=== PATIENT | female | born 1955 | race Caucasian/White ===

== ENCOUNTER 2019-06-09 13:38 | Inpatient (IN) | payer MEDICARE ==
--- OUTSIDE RECORDS SUMMARY | 2019-06-09 14:00 | XMS REPORT | Summary of Care ---
:1955 Author Organization [facility] Address [address] [place] [address] Care Team Providers Name Role Phone Crystal Montalvo Primary Care Provider Reason for Referral Diagnostic Testing (Routine) Status Reason Specialty Diagnoses / Referred By Referred To Procedures Contact Contact Pending Review Diagnoses Pedal edema Crystal Montalvo MD Procedures ECHOCARDIOGRAM TTE [address] [place] [address] Refer to Department Only (Routine) Status Reason Specialty Diagnoses / Referred By Referred To Procedures Contact Contact Pending Review NEUROLOGY Diagnoses Confusion Crystal Montalvo MD [address] [place] [address] Refer to Department Only (Routine) Status Reason Specialty Diagnoses / Referred By Referred To Procedures Contact Contact Pending Review PULMONARY Diagnoses YEHUDA (obstructive sleep apnea) Crystal Montalvo MD [address] [place] [address] Reason for Visit Reason Comments Fatigue falling asleep throughout the day while doing things (watching TV, texting, driving) Memory Loss MMSE score 29 today Angioedema b/l ankles Breathing Problem Burning Eyes Encounter Details Date Type Department Care Team Description 06/05/2019 Office Visit Crystal Dawkins MD Hypothyroidism, unspecified type (Primary Dx); Medicine [address] Lipid disorder; [address] [place] [address] YEHUDA (obstructive sleep apnea); [place] [address] Confusion; [phone] Pedal edema Allergies Active Allergy Reactions Severity Noted Date Comments Aspirin 2007 documented as of this encounter (statuses as of 06/05/2019) Medications Medication Sig Dispensed Refills Start End Date Status Date aspirin (ECOTRIN) 81 MG Take 81 mg 0 Active Oral Tab EC by mouth DAILY. levothyroxine Take 1 Tab 90 Tab 1 Active (SYNTHROID) 50 MCG Oral by mouth 9 Tab BEFORE BREAKFAST. alpha-tocopherol Take 400 0 Active (VITAMIN E) 400 UNIT Units by Oral Cap mouth DAILY. Cholecalciferol (VITAMIN Take 2,000 0 Active D3) 50 MCG (2000 UT) Units by Oral Tab mouth DAILY AT 1400. hydrochlorothiazide Take 1 Cap 90 Cap 3 Active (HCTZ, ORETIC) 12.5 MG by mouth 0 Oral CapIndications: DAILY. Pedal edema MAGNESIUM PO Take by 0 06/05/19 Discontinued mouth. 20 (Patient stopped the medication) documented as of this encounter (statuses as of 06/05/2019) Active Problems Problem Noted Date YEHUDA (obstructive sleep apnea) 11/29/2018 Overview: Refer to [facility] - 11/29/18 - Sleep study shows severe obsructive sleep apnea Lipid disorder 12/03/2015 Overview: High HDL; High LDL - framingham risk 2% ( 11/15) 02/01/16 - 6.2 % Gastroesophageal reflux disease 03/03/2015 Osteoporosis 02/18/2014 Overview: Last dxa 2010 - Has been on actonel - since ~2005 - Frax data: 10 yr risk for major osteoporotic fracture - 12 %; hip fracture 3-% Adult BMI 19-24 kg/sq m 07/10/2011 Mammographic microcalcification 10/31/2007 Unspecified vitamin D deficiency 2007 Unspecified hypothyroidism 2007 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 Disorder of bone and cartilage, unspecified 2007 Other and unspecified hyperlipidemia 2007 Personal history of colonic polyps 2007 documented as of this encounter (statuses as of 06/05/2019) Immunizations Name Administration Dates Next Due Influenza (IM) Preservative Free 01/04/2018, 01/31/2016, 01/08/2015, 01/22/2014, 03/05/2013, 03/16/2012, 03/02/2011 PNEUMOCOCCAL POLYSACCHARIDE VACCINE 03/20/2011 Pneumococcal Conjugate(13 Valent) 12/02/2015 TDAP Vaccine 04/04/2019, 11/18/2007 documented as of this encounter Social History Tobacco Use Types Packs/Day Years Used Date Former Smoker Quit: 04/02/1999 Smokeless Tobacco: Never Used Alcohol Use Drinks/Week oz/Week Comments No Social Isolation Answer Date Recorded In a typical week, how many times do you More than three times a week 2018 talk on the phone with family, friends, or neighbors? How often do you get together with friends More than three times a week 10/23 or relatives? How often do you attend quaker or Not asked taoism services? Do you belong to any clubs or Not asked organizations such as quaker groups, unions, [employer] or athletic groups, or school groups? How often do you attend meetings of the Not asked clubs or organizations you belong to? Are you now , , , Never 10/23/2018 , never or living with a partner? Physical Activity Answer Date Recorded On average, how many days per week do you engage in moderate to 3 days 2018 strenuous exercise (like walking fast, running, jogging, dancing, swimming, biking, or other activities that cause a light or heavy sweat)? On average, how many minutes do you engage in exercise at this 30 min 2018 level? Stress Answer Date Recorded Do you feel stress - tense, restless, nervous, or anxious, Not at all 2018 or unable to sleep at night because your mind is troubled all the time - these days? Financial Resource Strain Answer Date Recorded How hard is it for you to pay for the very basics like Not hard at all 2018 food, housing, medical care, and heating? Intimate Partner Violence Answer Date Recorded Within the last year, have you been afraid of your partner or No 10/23/2018 ex-partner? Within the last year, have you been humiliated or emotionally No 10/23/2018 abused in other ways by your partner or ex-partner? Within the last year, have you been kicked, hit, slapped, or No 10/23/2018 otherwise physically hurt by your partner or ex-partner? Within the last year, have you been raped or forced to have any No 10/23/2018 kind of sexual activity by your partner or ex-partner? Food Insecurity Answer Date Recorded Within the past 12 months, you worried that your food would Never true 2018 run out before you got money to buy more. Within the past 12 months, the food you bought just didn't Never true 2018 last and you didn't have money to get more. Transportation Needs Answer Date Recorded In the past 12 months, has lack of transportation kept you from No 10/23/2018 medical appointments or from getting medications? In the past 12 months, has lack of transportation kept you from No 10/23/2018 meetings, work, or getting things needed for daily living? Sex Assigned at Date Recorded Not on file documented as of this encounter Last Filed Vital Signs Vital Sign Reading Time Taken Comments Blood Pressure 128/84 06/05/2019 1:27 PM EST Pulse 56 06/05/2019 1:27 PM EST Temperature 35.9 06/05/2019 1:27 PM EST C (96.7 F) Respiratory Rate - - Oxygen Saturation 97% 06/05/2019 1:27 PM EST Inhaled Oxygen Concentration - - Weight - - Height 167.6 cm (5' 6") 06/05/2019 1:27 PM EST Body Mass Index - - documented in this encounter Patient Instructions Patient InstructionsCrystal Montalvo MD - 06/05/2019 1:20 PM ESTPlan Referral to pulmonary to assess for obsructive sleep apnea Referral neurology for narcoleptic episodes / confusion Progression of Myotonic Distrophy Referral back to monomer recovery operator - Blurry vision documented in this encounter Progress Notes Crystal Montalvo MD - 06/05/2019 1:20 PM EST NAME:Damaris Sierra 1955: 1955 ENC Date: 06/05/2019 CC: Chief Complaint Patient presents with ? Fatigue falling asleep throughout the day while doing things (watching TV, texting, driving) ? Memory Loss MMSE score 29 today ? Angioedema b/l ankles ? Breathing Problem ? Burning Eyes Damaris Sierra is a 64-y.o. female 1. Hypothyroid - Lab Results Component Value Date TSH 3.82 05/01/2019 2 cpap - Was fitted with wrong machine - Still without mask - has gotten weaker - sleeping in a recliner becuase cannot get out of bed 4. Vision - new glasses - then blurry again - 5. Falling asleep frequently - midsentence 6. Pedal edema Current Outpatient Medications Medication Sig ? alpha-tocopherol (VITAMIN E) 400 UNIT Oral Cap Take 400 Units by mouth DAILY. ? aspirin (ECOTRIN) 81 MG Oral Tab EC Take 81 mg by mouth DAILY. ? Cholecalciferol (VITAMIN D3) 50 MCG (2000 UT) Oral Tab Take 2,000 Units by mouth DAILY AT 1400. ? hydrochlorothiazide (HCTZ, ORETIC) 12.5 MG Oral Cap Take 1 Cap by mouth DAILY. ? levothyroxine (SYNTHROID) 50 MCG Oral Tab Take 1 Tab by mouth BEFORE BREAKFAST. No current facility-administered medications for this visit. Patient Active Problem List Diagnosis Date Noted ? YEHUDA (obstructive sleep apnea) 11/29/2018 [place] [facility] [place] - Sleep study shows severe obsructive sleep apnea ? Lipid disorder 12/03/2015 High HDL; High LDL - framingham risk 2% ( 11/15) 02/01/16 - 6.2 % ? Gastroesophageal reflux disease 03/03/2015 ? Osteoporosis 02/18/2014 Last dxa 2010 - Has been on actonel - since ~2005 - Frax data: 10 yr risk for major osteoporotic fracture - 12 %; hip fracture 3-% ? Adult BMI 19-24 kg/sq m 07/10/2011 ? Mammographic microcalcification 10/31/2007 ? Unspecified vitamin D deficiency 2007 ? Unspecified hypothyroidism 2007 ? 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 Disorder of bone and cartilage, unspecified 2007 ? Other and unspecified hyperlipidemia 2007 ? Personal history of colonic polyps 2007 Family History Problem Relation Age of Onset ? Breast Cancer Maternal Aunt ? Seizures Father ? Stroke Father ? CHF Mother ? Heart Mother A fib ? Stroke Mother ? Macular Degeneration Mother ? No Known Problems Sister ? No Known Problems Sister ? Heart Sister Conduction issues No cardiopulmonary symptoms No upper or lower GI complaints No urinary tract symptoms. No bruising/ bleeding. No neurological complaints . No insomnia.+ . Social History Tobacco Use ? Smoking status: Former Smoker Last attempt to quit: 04/02/1999 Years since quittin.1 ? Smokeless tobacco: Never Used Substance Use Topics ? Alcohol use: No ? Drug use: No OBJECTIVE: observed episodes of "falling asleep" almost in midsentene BP 128/84 | Pulse 56 | Temp 96.7 F (35.9 C) | Ht 5' 6" (1.676 m) | SpO2 97% | BMI 24.21kg/m . Heent neg Lungs Clear CV rrr Abd soft, nontender, no organomegaly Ext 2-3 + edema; no lesions; pulses intact Neuro: intellect intact ; A/P ICD-9-CM ICD-10-CM 1. Hypothyroidism, unspecified type 244.9 E03.9 2. Lipid disorder 272.9 E78.9 3. YEHUDA (obstructive sleep apnea) 327.23 G47.33 REFER TO PULMONARY 4. Confusion 298.9 R41.0 REFER TO NEUROLOGY 5. Pedal edema 782.3 R60.0 ECHOCARDIOGRAM TTE hydrochlorothiazide (HCTZ, ORETIC) 12.5 MG Oral Cap Patient Instructions Plan Referral to pulmonary to assess for obsructive sleep apnea Referral neurology for narcoleptic episodes / confusion Progression of Myotonic Distrophy Referral back to monomer recovery operator - Blurry vision AUTHOR: Crystal Montalvo MD 14:30 06/05/2019 documented in this encounter Plan of Treatment Date Type Specialty Care Team Description 06/11/2019 Appointment Radiology Name Type Priority Associated Diagnoses Order Schedule ECHOCARDIOGRAM TTE CV Lab Routine Pedal edema Expected: 06/05/2019, Expires: 07/09/2020 Name Type Priority Associated Diagnoses Order Schedule REFER TO PULMONARY Referral Routine YEHUDA (obstructive sleep Expected: 2019, apnea) Expires: 06/04/2020 REFER TO NEUROLOGY Referral Routine Confusion Expected: 06/05/2019, Expires: 06/04/2020 Health Maintenance Due Date Last Done Comments MAMMOGRAM (SCREENING) 07/20/2018 07/20/2017, 06/28/2017, 12/02/2015, Additional history exists DEPRESSION SCREENING 10/24/2019 10/23/2018 MEDICARE ANNUAL WELLNESS 10/24/2019 10/23/2018, 10/18/2017, VISIT 12/02/2015, Additional history exists INFLUENZA VACCINE (#1) 2019 01/04/2018, 01/31/2016, Postponed from 01/08/2015, Additional 12/01/2018 (Other) history exists ZOSTER IMMUNIZATION SERIES 04/04/2020 Postponed from (1 of 2) 2005 (Patient refused) Colonoscopy 10/19/2020 10/20/2015 (Postponed), 11/21/2010, 11/21/2010 Cologuard Screening 10/07/2021 10/07/2018 LIPID DISORDER SCREENING 09/24/2023 09/23/2018, 12/03/2015, 02/24/2015, Additional history exists DTaP/Tdap/Td Vaccines (3 - 04/04/2029 04/04/2019, 11/18/2007 Tdap) PNEUMOCOCCAL 0-64 YRS Aged Out 12/02/2015, 03/20/2011 No longer eligible based on patient's age to complete this topic HEPATITIS A IMMUNIZATION Aged Out No longer eligible SERIES based on patient's age to complete this topic HPV IMMUNIZATION SERIES Aged Out No longer eligible based on patient's age to complete this topic MENINGOCOCCAL VACCINE IMM Aged Out No longer eligible based on patient's age to complete this topic documented as of this encounter Results Not on filedocumented in this encounter Visit Diagnoses Diagnosis Hypothyroidism, unspecified type Lipid disorder Unspecified disorder of lipoid metabolism YEHUDA (obstructive sleep apnea) Obstructive sleep apnea (adult) (pediatric) Confusion Unspecified psychosis Pedal edema Edema documented in this encounter Insurance Payer Benefit Plan / Subscriber ID Effective Dates Phone Address Type Group MEDICARE MEDICARE PART [id number] 2012-Presen Medicare A & B t [facility] EMPIRE [facility] [id number] 2016-[place]en [place] [facility] [place] [id number] 2018-Tracie ALBERTO/DAMIÁN BAÑUELOS PPO t documented as of this encounter
--- OUTSIDE RECORDS SUMMARY | 2019-06-09 14:00 | XMS REPORT ---
:1955 Author Organization [facility] Care Team Providers Name Role Phone Unavailable Unavailable Unavailable Problems This patient has no known problems. Allergies, Adverse Reactions, Alerts Allergy Allergy Status Severity Reaction(s) Onset Inactive Treating Comments Name Type Date Date Clinician Unknown None Active Unknown None Unknown No Known Allergies For This Patient Medications Ordered Filled Start Stop Current Ordering Indication Dosage Frequency Signature Comments Components Medication Medication Date Date Medication? Clinician (SIG) Name Name No Known No Known No None None None Medications Medications For This For This Patient Patient Procedures This patient has no known procedures. Results This patient has no known results.
[2019-06-09] MEDS ORDERED: Furosemide IV* 10 MG/ML 10 ML VIAL (100 MG) IV ONE (15:41)
[2019-06-09 16:05] LABS: ABS Lymphocytes 0.5 10^3/ul (1.0-4.8); ABS Monocytes 0.5 10^3/ul (0-0.8); Eosinophil % 0.7 %; Hematocrit 46 % (35-47); Hemoglobin 14.9 g/dL (12.0-16.0); Lymphocyte % 8.5 %; Mean Corpuscular HGB Conc 33 g/dL (31-36); Mean Corpuscular Hemoglobin 29 pg (27-31); Mean Corpuscular Volume 91 fL (80-97); Mean Platelet Volume 7.8 fL (7.4-10.4); Platelet Count 172 10^3/uL (150-450); Red Blood Count 5.08 10^6 /uL (3.70-4.87); Red Cell Distribution Width 16 % (10-15); White Blood Count 6.1 10^3/uL (3.5-10.8)
[2019-06-09 16:27] LABS: Activated Partial Thrombo Time 36.4 seconds (26.0-38.0); INR 0.99 (0.82-1.09)
[2019-06-09 16:48] LABS: ALT 33 U/L (7-52); Albumin 3.6 g/dL (3.2-5.2); Albumin/Globulin Ratio 1.6 (1-3); Alkaline Phosphatase 56 U/L (34-104); Blood Urea Nitrogen 24 mg/dL (6-24); C Reactive Protein 6.79 mg/L (<8.01); Calcium 9.3 mg/dL (8.6-10.3); Chloride 93 mmol/L (101-111); Globulin 2.3 g/dL (2-4); Glucose 90 mg/dL (70-100); Sodium 139 mmol/L (135-145); Total Protein 5.9 g/dL (6.4-8.9)
[2019-06-09 16:53] LABS: CO2 Carbon Dioxide 42 mmol/L (22-32)
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
[2019-06-09 17:26] LABS: Anion Gap 4 mmol/L (2-11); Potassium 4.3 mmol/L (3.5-5.0)
[2019-06-09 17:31] LABS: AST 30 U/L (13-39)
[2019-06-09 18:13] LABS: Urine Appearance Clear; Urine Bilirubin Negative (Negative); Urine Blood Negative (Negative); Urine Color Straw; Urine Glucose Negative (Negative); Urine Ketones Trace (Negative); Urine Nitrite Negative (Negative); Urine Protein Negative (Negative); Urine Specific Gravity 1.009 (1.010-1.030); Urine Urobilinogen Negative (Negative)
--- NOTE | 2019-06-09 19:13 | HP ---
H&P (Free Text) History and Physical: History and Physical Limitations in history/physical: delirium, mental status change HPI: 64y F w/pmhx of Muscular dystrophy, hypothyroidism; presents to ER for complaints of >1 month of increasing lower extremity swelling, recently started on low dose Lasix. She also had complaints, as per sister also, of more fatigue and increased sleeping, from mid-sentence to on the phone to driving since past 1-2 months. SOB intermittently. Incontinent baseline. Wheelchair bound baseline with history of recurrent falls while mobilizing. She had a sleep study at [facility] in jan 2019 and had cpap but not the correct one, so was to see Dr Mckinney but appt was not at this time. Her sister states she snores at night, apneic episodes, with intermittent waking also. Patient states she wakes at night frequently, always tired. In ER she was hypoxic 84% on RA, placed on NC 2 L. Currently awake, alert, while I talk to her she becomes sleepy during conversation on and off. She is otherwise not complaining of distress now. Currently on NC 2 L. ROS: negative except for pertinent positives mentioned above PMHx: Muscular dystrophy, hypothyroidism PSHx: tonsillectomy, Achilles heel tendon surgery Family History: heart disease , SVT In mother and sister Social History: Alcohol-1 glass wine/day when able, Smoking-smoked mild for 10yrs, stopped in 90s, Drug use-denies; Was a [employer] profession Allergies: Allergies Allergy/AdvReac Type Severity Reaction Status Date / Time No Known Allergies Allergy Verified 06/09/19 13:41 Home Medications: Alpha Tocopherol 400 mg PO DAILY 06/09/19 [History Confirmed 06/09/19] Aspirin EC TAB* [Ecotrin EC Low Dose 81 MG*] 81 mg PO DAILY 06/09/19 [History Confirmed 06/09/19] Cholecalciferol CAP/TAB(NF) [Vitamin D3 CAP/TAB (NF)] 2,000 unit PO DAILY [History Confirmed 06/09/19] Levothyroxine TAB* [Synthroid TAB*] 50 mcg PO DAILY 06/09/19 [History Confirmed 06/09/19] hydroCHLOROthiazide [Hydrochlorothiazide] 12.5 mg PO DAILY 06/09/19 [History Confirmed 06/09/19] Tele: NSR Vitals: Vital Signs Temp 98.1 F 06/09/19 13:41 Pulse 71 06/09/19 16:47 Resp 19 06/09/19 13:41 BP 117/77 06/09/19 16:47 Pulse Ox 90 06/09/19 16:47 Intake & Output 06/09/19 06/09/19 06/10/19 06:59 18:59 06:59 Weight 72.575 kg O2/Vent: NC 2 L Infusions: heplock Current Medications: Enoxaparin Sodium (Lovenox(*)) 40 mg SUBCUT Q24H REGGIE Physical Exam: Constitutional: awake, alert, no distress, no diaphoresis; sleeping mid- conversation Head: normocephalic, atraumatic Eyes: no pallor, no icterus ENT: moist mucous membranes Neck: soft, supple, no jvd, no stridor CVS: normal rate, regular, no murmur Chest/Resp: bilateral air entry, no rhales, no wheeze, no rhonchi, no acc muscle use Abdomen/GI: soft, nontender, nondistended, BS+ Ext/Msk: warm, pulses+, 3+ bilateral LE edema with some erythema in both legs and small blisters/some ruptured Skin: intact, warm; some small LE b/l blisters, some ruptures, no sig drainage; left arm and breast eccymosis+ from fall Neuro: awake, alert, orientedx3, moving all extremities, no gross focal deficit Psych: normal affect Labs: Laboratory Results - last 24 hr 06/09/19 06/09/19 06/09/19 15:56 15:57 15:57 WBC 6.1 RBC 5.08 H Hgb 14.9 Hct 46 MCV 91 MCH 29 MCHC 33 RDW 16 H Plt Count 172 MPV 7.8 Neut % (Auto) 81.6 Lymph % (Auto) 8.5 Ocean % (Auto) 8.7 Eos % (Auto) 0.7 Baso % (Auto) 0.5 Absolute Neuts (auto) 5.0 Absolute Lymphs (auto) 0.5 L Absolute Monos (auto) 0.5 Absolute Eos (auto) 0.0 Absolute Basos (auto) 0.0 Absolute Nucleated RBC 0.0 Nucleated RBC % 0.0 INR (Anticoag Therapy) 0.99 APTT 36.4 Patient Temperature ABG pH ABG pH (Temp Correct) ABG pCO2 ABG pCO2 (Temp Corrct ABG pO2 ABG pO2 (Temp Correct ABG HCO3 ABG O2 Saturation ABG Base Excess Respiration Rate O2 Delivery Device Ventilator Type Vent Mode FiO2 Inspiratory Time PEEP Pressure Support Pressure Control EPAP IPAP BiPAP Sodium 139 Potassium 4.3 Chloride 93 L Carbon Dioxide 42 H* Anion Gap 4 BUN 24 Creatinine < 0.30 L Est GFR ( Amer) 271.0 Est GFR (Non-Af Amer) 224.0 BUN/Creatinine Ratio 80.0 H Glucose 90 Lactic Acid Calcium 9.3 Total Bilirubin 0.50 AST 30 ALT 33 Alkaline Phosphatase 56 Troponin I 0.00 C-Reactive Protein 6.79 B-Natriuretic Peptide Total Protein 5.9 L Albumin 3.6 Globulin 2.3 Albumin/Globulin Ratio 1.6 Urine Color Urine Appearance Urine pH Ur Specific [place] Urine Protein Urine Ketones Urine Blood Urine Nitrate Urine Bilirubin Urine Urobilinogen Ur Leukocyte Esterase Urine Glucose 06/09/19 06/09/19 06/09/19 15:57 15:57 17:31 WBC RBC Hgb Hct MCV MCH MCHC RDW Plt Count MPV Neut % (Auto) Lymph % (Auto) Ocean % (Auto) Eos % (Auto) Baso % (Auto) Absolute Neuts (auto) Absolute Lymphs (auto) Absolute Monos (auto) Absolute Eos (auto) Absolute Basos (auto) Absolute Nucleated RBC Nucleated RBC % INR (Anticoag Therapy) APTT Patient Temperature ABG pH ABG pH (Temp Correct) ABG pCO2 ABG pCO2 (Temp Corrct ABG pO2 ABG pO2 (Temp Correct ABG HCO3 ABG O2 Saturation ABG Base Excess Respiration Rate O2 Delivery Device Ventilator Type Vent Mode FiO2 Inspiratory Time PEEP Pressure Support Pressure Control EPAP IPAP BiPAP Sodium Potassium Chloride Carbon Dioxide Anion Gap BUN Creatinine Est GFR ( Amer) Est GFR (Non-Af Amer) BUN/Creatinine Ratio Glucose Lactic Acid 0.5 Calcium Total Bilirubin AST ALT Alkaline Phosphatase Troponin I C-Reactive Protein B-Natriuretic Peptide 110 H Total Protein Albumin Globulin Albumin/Globulin Ratio Urine Color Straw Urine Appearance Clear Urine pH 7.0 Ur Specific [place] 1.009 L Urine Protein Negative Urine Ketones Trace A Urine Blood Negative Urine Nitrate Negative Urine Bilirubin Negative Urine Urobilinogen Negative Ur Leukocyte Esterase Negative Urine Glucose Negative 06/09/19 17:40 WBC RBC Hgb Hct MCV MCH MCHC RDW Plt Count MPV Neut % (Auto) Lymph % (Auto) Ocean % (Auto) Eos % (Auto) Baso % (Auto) Absolute Neuts (auto) Absolute Lymphs (auto) Absolute Monos (auto) Absolute Eos (auto) Absolute Basos (auto) Absolute Nucleated RBC Nucleated RBC % INR (Anticoag Therapy) APTT Patient Temperature Not Reportable ABG pH 7.37 ABG pH (Temp Correct) Not Reportable ABG pCO2 86 H* ABG pCO2 (Temp Corrct Not Reportable ABG pO2 151 H ABG pO2 (Temp Correct Not Reportable ABG HCO3 40.1 H* ABG O2 Saturation 100.0 H ABG Base Excess 19.5 H Respiration Rate Not Reportable O2 Delivery Device nasal cannula 2lpm Ventilator Type Not Reportable Vent Mode Not Reportable FiO2 Not Reportable Inspiratory Time Not Reportable PEEP Not Reportable Pressure Support Not Reportable Pressure Control Not Reportable EPAP Not Reportable IPAP Not Reportable BiPAP Not Reportable Sodium Potassium Chloride Carbon Dioxide Anion Gap BUN Creatinine Est GFR ( Amer) Est GFR (Non-Af Amer) BUN/Creatinine Ratio Glucose Lactic Acid Calcium Total Bilirubin AST ALT Alkaline Phosphatase Troponin I C-Reactive Protein B-Natriuretic Peptide Total Protein Albumin Globulin Albumin/Globulin Ratio Urine Color Urine Appearance Urine pH Ur Specific [place] Urine Protein Urine Ketones Urine Blood Urine Nitrate Urine Bilirubin Urine Urobilinogen Ur Leukocyte Esterase Urine Glucose Imaging: cxr 06/08 - mild left atelectasis+; minimal congestion if at all CT brain 06/08 - no acute findings Assessment: 64y F w/pmhx of Muscular dystrophy, hypothyroidism; presents to ER for complaints of >1 month of increasing lower extremity swelling, recently started on low dose Lasix. She also had complaints, as per sister also, of more fatigue and increased sleeping, from mid-sentence to on the phone to driving since past 1-2 months. SOB intermittently. Incontinent baseline. Wheelchair bound baseline with history of recurrent falls while mobilizing. She had a sleep study at [facility] in jan 2019 and had cpap but not the correct one , so was to see Dr Mckinney but appt was not at this time. Her sister states she snores at night, apneic episodes, with intermittent waking also. Patient states she wakes at night frequently, always tired. In ER she was hypoxic 84% on RA, placed on NC 2 L. Currently awake, alert, while I talk to her she becomes sleepy during conversation on and off. She is otherwise not complaining of distress now. Currently on NC 2 L. -Hypoxia -suspected YEHUDA -r/o Right heart failure -Volume overload -r/o LE DVT -Muscular dystrophy Plan: Neuro- -awake, alert; sleepy though at times -ABG reviewed and showing a compensated respiratory acidosis -check ammonia level -CT brain without sig acute abnormal findings -h/o muscular dystrophy - baseline now in wheelchair, had more falls these days. is this from weakness? the sleepiness? does not appear to be any further progression acutely. she does have some evidence of upper ext muscular atrophy. -Delirium prec; avoid BDZ CVS- -BP stable, HR stable -noted LE edema+++; but BNP not markedly elevated. -check LE duplex study for DVTs -agree to start daily lasix 20mg IV daily, uptitrate as needed. hold IV fluids. -obtain TTE to evaluate LV and RV function -Maintain MAP>65 Resp- -had hypoxia on arrival, but no distress noted; hypoventilation? obstruction? -now on NC 2 L, no distress -ABG noted with elevated CO2 80s and elevated bicarb 40s; clinical history suggests a compensated resp acidosis -CXR without acute findings of congestion/infiltrate -given hypoxia, relatively clear CXR, some SOB as her complaints and LE edema b/ l with RF to develop DVTs given her wheelchair bound state, will obtain CTA chest for eval of PE and better eval of lung parenchyma -She has symptoms consistent with YEHUDA, intermittent waking, apneic episodes, daytimes sleeping; will start nocturnal CPAP PS 10, 2L O2 -obtain Pulmonary consult for eval of YEHUDA nad possible Pulm HTN -Wean Fio2 to keep sat>92% -Bronchodilators PRN, Aspiration prec ID- afebrile. wbc normal. nontoxic appearing. LE bilateral edema with erythema+, blistering+. does not appear infected, no clear source. observe off abx, keep elevated. r/o DVTs GI- -cardiac diet -GI prophylaxis Renal- -Cr normal; making urine; K okay, no acidosis -silva was placed -noted metabolic alkalosis; does not appear volume depleted but BUN Cr ratio elevated. She may just have poor muscle mass causing low Cr. Metabolic alkalosis may be from resiratory acidosis. She was started on HCTZ recently but still have volume overload and not likely enough diuretic to cause such a dramatic alkalosis yet. -strict I/O, replete to keep K>4, Mg>2 -silva as indicated Heme- hg stable. no bleeding. Endo- Maintain BG<200, insulin protocol as needed. check hba1c. -cont synthroid Musculsk- pressure ulcer prophylaxis. Bedrest. oob to chair as tolerated Wounds- LE blisters+, local wound care. keep elevated. -noted left arm and breast eccymosis from previous fall Nutrition- cardiac diet DVT prophylaxis: lovenox GI prophylaxis: not indicated Silva Cathetor: yes 06/08 Disposition: Admit Inpatient med/tele; Expected LOS>2 midnights Patient Clinical Status: guarded Code Status: full code HCP is her sister at bedside Romeo Mahoney MD Resolution Specialist (Electronically Signed)
[2019-06-09] MEDS ORDERED: Iohexol 350* (CONTRAST) 500 ML MDV IV ONE (20:23)
[2019-06-09] MEDS: Enoxaparin(*) 40 MG/0.4 ML SYR SUBCUT SCH (21:20)
[2019-06-10] MEDS ORDERED: Iodixanol* (CONTRAST) 320 MG/ML 100 ML SDV IV ONE (05:40)
[2019-06-10 06:49] LABS: Hematocrit 48 % (35-47); Hemoglobin 15.3 g/dL (12.0-16.0); Mean Corpuscular HGB Conc 32 g/dL (31-36); Mean Corpuscular Hemoglobin 29 pg (27-31); Mean Corpuscular Volume 91 fL (80-97); Mean Platelet Volume 7.7 fL (7.4-10.4); Platelet Count 165 10^3/uL (150-450); Red Blood Count 5.26 10^6 /uL (3.70-4.87); Red Cell Distribution Width 17 % (10-15); White Blood Count 4.7 10^3/uL (3.5-10.8)
[2019-06-10 07:04] LABS: BUN/Creatinine Ratio 51.3 (8-20); Blood Urea Nitrogen 20 mg/dL (6-24); Calcium 9.1 mg/dL (8.6-10.3); Chloride 88 mmol/L (101-111); Creatine Kinase 112 U/L (10-223); EGFR African American 200.2 (>60); EGFR Non-African American 165.5 (>60); Glucose 117 mg/dL (70-100); Magnesium 1.9 mg/dL (1.9-2.7); Potassium 3.6 mmol/L (3.5-5.0); Sodium 142 mmol/L (135-145)
[2019-06-10 07:21] LABS: CO2 Carbon Dioxide 48 mmol/L (22-32)
[2019-06-10 08:37] LABS: INR 0.97 (0.82-1.09)
--- NOTE | 2019-06-10 08:37 | PN ---
Hospitalist Progress Note Date of Service: 06/10/19 Called at 510 with concerns with facial droop and slurring of speech. Pt with MD unknown type. Attending at bedside. NIH initially 17 however with MD can not move legs scored 4 for each but this is baseline. She would not respond to threat. She was dysarthric and could not describe pictures or name objects or do repetition. Code gallagher called. Ct brain negative and CTA negative. Tele stroke initiated. The repeat nih 12. Tele stroke did not not facial droop and felt that her findings were most likely secondary to metabolic derangements. It should be noted that her admission abd showed co2 retention. The plan is to check ammonia, cmp, eeg, neuro consult, cbc, u/a, blood cx. With telestroke eval it is noted that patient is drwosy during questioning and no facial droop noted and no weakness. Given her ability to not follow command neuro exam difficult. Updated ICU attending and signed out case to CAR FRAMER. Also it is noted that her repeat abd showed a co2 of 115. Will start Bipap, and repeat abg,
[2019-06-10] MEDS ORDERED: Furosemide IV* 10 MG/ML 2 ML VIAL (20 MG) IV ONE (09:00)
[2019-06-10] MEDS: Furosemide IV* 10 MG/ML 2 ML VIAL (20 MG) IV SCH (09:19)
[2019-06-10 10:43] LABS: Urine Appearance Clear; Urine Bilirubin Negative (Negative); Urine Blood 2+ (Negative); Urine Color Straw; Urine Glucose Negative (Negative); Urine Ketones Negative (Negative); Urine Nitrite Negative (Negative); Urine Protein Negative (Negative); Urine Specific Gravity 1.013 (1.010-1.030); Urine Urobilinogen Negative (Negative)
[2019-06-10 10:48] LABS: Urine Bacteria Absent (Absent); Urine Red Blood Cell 2+(6-10/hpf) (Absent); Urine White Blood Cell Trace(0-5/hpf) (Absent)
--- NOTE | 2019-06-10 11:06 | ECHO ---
*[facility]* [place] [address] Fax #: [phone] Transthoracic Echocardiogram Patient: Damaris Sierra : 1955 Study Date: 06/10/2019 Age: 64 Gender: F HR: 83 bpm Height: 66 in /167.6 cm BSA: 1.85 m^2 Weight: 159.7 lb /72.6 kg BMI: 25.8 kg/m^2 *[employer] Operator: * Maddie Sanchez RDCS RN *Referring Physician: * Romeo Mahoney *Reading Physician: * Jong Ho MD Indications: SOB. Edema. History: Muscular dystrophy Risk factors: Former tobacco use. Conclusions Summary: - Left ventricle: Systolic function is hyperdynamic. The estimated ejection fraction is 65-70%. There is turbulence and increased velocities in the left ventricular outflow tract without dagger profiles consistent with a hyperdynamic state. Wall motion is normal; there are no regional wall motion abnormalities. - Mitral valve: There is trace regurgitation. - Aortic valve: There is no evidence of stenosis. - Tricuspid valve: There is mild-moderate regurgitation. - Pericardium, extracardiac: There is no pericardial effusion. - Pulmonary arteries: Systolic pressure is moderately to severely increased, estimated to be 57 mm Hg. Study data: Transthoracic echocardiogram. Procedure: Transthoracic echocardiography was performed. Image quality was fair. Complete 2D, spectral Doppler, and color flow Doppler. Location: ICU Patient status: Inpatient. Patient room number: ICU 12. Rhythm: Normal sinus rhythm. Findings Left ventricle: The cavity size is moderately reduced. Wall thickness is mildly increased. Systolic function is hyperdynamic. The estimated ejection fraction is 65-70%. There is turbulence and increased velocities in the left ventricular outflow tract without dagger profiles consistent with a hyperdynamic state. Wall motion is normal; there are no regional wall motion abnormalities. There is no consistent Doppler evidence of clinically significant diastolic dysfunction. Right ventricle: The cavity size is mildly dilated. Systolic function is normal. Left atrium: The atrium is normal in size. Right atrium: The atrium is mildly dilated. Mitral valve: The leaflets are mildly thickened. There is no evidence of stenosis. There is trace regurgitation. Aortic valve: The annulus is calcified. The leaflets are mildly thickened. There is no evidence of stenosis. There is no significant regurgitation. Tricuspid valve: The leaflets are normal thickness. There is no evidence of stenosis. There is mild-moderate regurgitation. Pulmonic valve: Not well visualized. Aorta: Aortic root: The aortic root is not dilated. Ascending aorta: The ascending aorta is not visualized. Aortic arch: The aortic arch is not dilated. Pericardium: A prominent pericardial fat pad is present. There is no pericardial effusion. Pulmonary arteries: Not well visualized. Systolic pressure is moderately to severely increased, estimated to be 57 mm Hg. Systemic veins: Inferior vena cava: The vessel is normal in size. Respirophasic changes in dimension are absent. The patient was on CPAP at the time of the exam. Measurements Left ventricle Value Ref Right atrium continued Value Ref THERESE, LAX (L) 2.8 cm 3.8 - SI dim, ES, A4C (H) 5.5 cm 3.4 - 5.3 5.2 Estimated RAP 8 mm Hg --------- ESD, LAX (L) 1.8 cm 2.2 - 3.5 Aortic valve Value Ref FS, LAX 36 % 27 - 45 Peak v, S 1.8 m/sec --------- PW, ED (H) 1.1 cm 0.6 - VTI, S 40.9 cm --------- 0.9 Mean grad, S 6.0 mm Hg --------- IVS/PW, ED 1.07 -------- Peak grad, S 13.0 mm Hg --------- E', lat jamal, TDI (L) 7.0 cm/sec >=10.0 LVOT/AV, VTI ratio 0.86 -- ------- E/e', lat jamal, TDI 11 -------- E', med jamal, TDI 7.0 cm/sec >=7.0 Mitral valve Value Re f E/e', med jamal, TDI 11 -------- Peak E 0.74 m/sec ----- ---- E', avg, TDI 7.0 cm/sec -------- Peak A 0.7 m/sec ----- ---- E/e', avg, TDI 11 <=14 Decel time 212 ms -- ------- Peak grad, D 2.2 mm Hg --------- LVOT Value Ref Peak E/A ratio 1.1 --------- Peak lashaun, S 1.8 m/sec -------- VTI, S 35.2 cm -------- Tricuspid valve Value Ref Peak grad, S 13 mm Hg -------- TR peak v (H) 3.5 m/sec <=2.8 Mean grad, S 6 mm Hg -------- Peak RV-RA grad, S 49 mm Hg --------- Ventricular septum Value Ref Aortic root Value Ref IVS, ED (H) 1.1 cm 0.6 - Root diam 2.7 cm <4.0 0.9 Aortic arch Value Ref Right ventricle Value Ref Arch diam 2.1 cm --------- THERESE, LAX 3.2 cm -------- THERESE minor ax, A4C (H) 3.7 cm 1.9 - Decending aorta Value Ref mid 3.5 Xu peak lashaun 0.46 m/sec --------- Pressure, S 57 mm Hg -------- Pulmonary artery Value Ref Left atrium Value Ref Pressure, S 57.0 mm Hg --------- SI dim ES, LAX 3.1 cm -------- ML dim, A4C 3.3 cm -------- Inferior vena cava Value Ref SI dim, A4C 5.5 cm -------- Diam 2.1 cm --------- Vol, ES, 2-p 41 ml -------- Vol/bsa, ES, 2-p 22 ml/m^2 16 - 34 Right atrium Value Ref ML dim, ES, A4C 4.0 cm 2.6 - 4.4 Legend: (L) and (H) mamadou values outside specified reference range. Prepared and electronically signed by Jong Ho MD 06/10/2019 11:06
--- NOTE | 2019-06-10 14:28 | PN ---
Progress Note - Progress Note Date of Service: 06/10/19 Note: Progress Note - Critical Care 24 hour events -overnight had FLAT LOCKER for neuroevents, possible CVA, left facial droop and left weakness; CT brain and CTA without TWIN and acute findings -upgraded to ICU, then more awake -noted ABG with acute on chronic hypercapnea, was placed on NIV -in morning no focal deficit was noted, no facial droop, sleepy in excess but moving all ext as yesterday without focal findings; baseline LE weakness in legs -this morning was still on NIV, but lethargic, later very lethargic, difficult to arouse; not triggering the NIV for any breaths, on backup rate on NIV still -assess patient with neuro at bedside -repeat ABG with further hypercapnea; now looked at patient Tele: NSR Vitals: Vital Signs Temp 96.8 F 06/10/19 11:40 Pulse 85 06/10/19 12:00 Resp 13 06/10/19 13:00 BP 99/57 06/10/19 12:00 Pulse Ox 92 06/10/19 12:00 Intake & Output 06/09/19 06/10/19 06/10/19 18:59 06:59 18:59 Intake Total 0 0 Output Total 2450 750 Balance -2450 -750 Weight 72.575 kg 78.471 kg Intake: Oral 0 0 Output: Silva 2450 750 O2/Vent: NIV 18/6 40% Infusions: heplock Current Medications: Enoxaparin Sodium (Lovenox(*)) 40 mg SUBCUT Q24H [facility] Last Admin: 06/09/19 21:20 Dose: 40 mg Furosemide (Lasix Iv*) 20 mg IV DAILY [facility] Last Admin: 06/10/19 09:19 Dose: 20 mg Levothyroxine Sodium (Synthroid Tab*) 50 mcg PO DAILY@0600 [facility] Physical Exam: Constitutional: awakens but sleepy, not always alert, no distress, no diaphoresis; sleeping mid-conversation still Head: normocephalic, atraumatic Eyes: no pallor, no icterus ENT: moist mucous membranes Neck: soft, supple, no jvd, no stridor CVS: normal rate, regular, no murmur Chest/Resp: bilateral air entry, no rhales, no wheeze, no rhonchi, no acc muscle use Abdomen/GI: soft, nontender, nondistended, BS+ Ext/Msk: warm, pulses+, 3+ bilateral LE edema, less erythema in LE, stable blisters withotu oozing Skin: intact, warm; some small LE b/l blisters; left arm and breast eccymosis+ from fall Neuro: awakens, alertness flucutates, no facial droop, UE 5/5 b/l, LE 3/5, oriented x2 Psych: normal affect but sleepy at times Labs: Laboratory Results - last 24 hr 06/09/19 06/09/19 06/09/19 15:56 15:57 15:57 WBC 6.1 RBC 5.08 H Hgb 14.9 Hct 46 MCV 91 MCH 29 MCHC 33 RDW 16 H Plt Count 172 MPV 7.8 Neut % (Auto) 81.6 Lymph % (Auto) 8.5 Henry % (Auto) 8.7 Eos % (Auto) 0.7 Baso % (Auto) 0.5 Absolute Neuts (auto) 5.0 Absolute Lymphs (auto) 0.5 L Absolute Monos (auto) 0.5 Absolute Eos (auto) 0.0 Absolute Basos (auto) 0.0 Absolute Nucleated RBC 0.0 Nucleated RBC % 0.0 INR (Anticoag Therapy) 0.99 APTT 36.4 Patient Temperature ABG pH ABG pH (Temp Correct) ABG pCO2 ABG pCO2 (Temp Corrct ABG pO2 ABG pO2 (Temp Correct ABG HCO3 ABG O2 Saturation ABG Base Excess Respiration Rate O2 Delivery Device Ventilator Type Vent Mode FiO2 Inspiratory Time PEEP Pressure Support Pressure Control EPAP IPAP BiPAP Sodium 139 Potassium 4.3 Chloride 93 L Carbon Dioxide 42 H* Anion Gap 4 BUN 24 Creatinine < 0.30 L Est GFR ( Amer) 271.0 Est GFR (Non-Af Amer) 224.0 BUN/Creatinine Ratio 80.0 H Glucose 90 POC Glucose (mg/dL) Hemoglobin A1c Lactic Acid Calcium 9.3 Magnesium Total Bilirubin 0.50 AST 30 ALT 33 Alkaline Phosphatase 56 Ammonia Total Creatine Kinase Troponin I 0.00 C-Reactive Protein 6.79 B-Natriuretic Peptide Total Protein 5.9 L Albumin 3.6 Globulin 2.3 Albumin/Globulin Ratio 1.6 Urine Color Urine Appearance Urine pH Ur Specific [place] Urine Protein Urine Ketones Urine Blood Urine Nitrate Urine Bilirubin Urine Urobilinogen Ur Leukocyte Esterase Urine WBC (Auto) Urine RBC (Auto) Urine Bacteria Hyaline Casts Urine Glucose 06/09/19 06/09/19 06/09/19 15:57 15:57 17:31 WBC RBC Hgb Hct MCV MCH MCHC RDW Plt Count MPV Neut % (Auto) Lymph % (Auto) Henry % (Auto) Eos % (Auto) Baso % (Auto) Absolute Neuts (auto) Absolute Lymphs (auto) Absolute Monos (auto) Absolute Eos (auto) Absolute Basos (auto) Absolute Nucleated RBC Nucleated RBC % INR (Anticoag Therapy) APTT Patient Temperature ABG pH ABG pH (Temp Correct) ABG pCO2 ABG pCO2 (Temp Corrct ABG pO2 ABG pO2 (Temp Correct ABG HCO3 ABG O2 Saturation ABG Base Excess Respiration Rate O2 Delivery Device Ventilator Type Vent Mode FiO2 Inspiratory Time PEEP Pressure Support Pressure Control EPAP IPAP BiPAP Sodium Potassium Chloride Carbon Dioxide Anion Gap BUN Creatinine Est GFR ( Amer) Est GFR (Non-Af Amer) BUN/Creatinine Ratio Glucose POC Glucose (mg/dL) Hemoglobin A1c Lactic Acid 0.5 Calcium Magnesium Total Bilirubin AST ALT Alkaline Phosphatase Ammonia Total Creatine Kinase Troponin I C-Reactive Protein B-Natriuretic Peptide 110 H Total Protein Albumin Globulin Albumin/Globulin Ratio Urine Color Straw Urine Appearance Clear Urine pH 7.0 Ur Specific [place] 1.009 L Urine Protein Negative Urine Ketones Trace A Urine Blood Negative Urine Nitrate Negative Urine Bilirubin Negative Urine Urobilinogen Negative Ur Leukocyte Esterase Negative Urine WBC (Auto) Urine RBC (Auto) Urine Bacteria Hyaline Casts Urine Glucose Negative 06/09/19 06/09/19 06/09/19 17:40 21:11 21:11 WBC RBC Hgb Hct MCV MCH MCHC RDW Plt Count MPV Neut % (Auto) Lymph % (Auto) Henry % (Auto) Eos % (Auto) Baso % (Auto) Absolute Neuts (auto) Absolute Lymphs (auto) Absolute Monos (auto) Absolute Eos (auto) Absolute Basos (auto) Absolute Nucleated RBC Nucleated RBC % INR (Anticoag Therapy) APTT Patient Temperature Not Reportable ABG pH 7.37 ABG pH (Temp Correct) Not Reportable ABG pCO2 86 H* ABG pCO2 (Temp Corrct Not Reportable ABG pO2 151 H ABG pO2 (Temp Correct Not Reportable ABG HCO3 40.1 H* ABG O2 Saturation 100.0 H ABG Base Excess 19.5 H Respiration Rate Not Reportable O2 Delivery Device nasal cannula 2lpm Ventilator Type Not Reportable Vent Mode Not Reportable FiO2 Not Reportable Inspiratory Time Not Reportable PEEP Not Reportable Pressure Support Not Reportable Pressure Control Not Reportable EPAP Not Reportable IPAP Not Reportable BiPAP Not Reportable Sodium Potassium Chloride Carbon Dioxide Anion Gap BUN Creatinine Est GFR ( Amer) Est GFR (Non-Af Amer) BUN/Creatinine Ratio Glucose POC Glucose (mg/dL) Hemoglobin A1c 6.1 H Lactic Acid Calcium Magnesium Total Bilirubin AST ALT Alkaline Phosphatase Ammonia 39 Total Creatine Kinase Troponin I C-Reactive Protein B-Natriuretic Peptide Total Protein Albumin Globulin Albumin/Globulin Ratio Urine Color Urine Appearance Urine pH Ur Specific [place] Urine Protein Urine Ketones Urine Blood Urine Nitrate Urine Bilirubin Urine Urobilinogen Ur Leukocyte Esterase Urine WBC (Auto) Urine RBC (Auto) Urine Bacteria Hyaline Casts Urine Glucose 06/10/19 06/10/19 06/10/19 05:16 06:35 06:35 WBC 4.7 RBC 5.26 H Hgb 15.3 Hct 48 H MCV 91 MCH 29 MCHC 32 RDW 17 H Plt Count 165 MPV 7.7 Neut % (Auto) Lymph % (Auto) Henry % (Auto) Eos % (Auto) Baso % (Auto) Absolute Neuts (auto) Absolute Lymphs (auto) Absolute Monos (auto) Absolute Eos (auto) Absolute Basos (auto) Absolute Nucleated RBC Nucleated RBC % INR (Anticoag Therapy) APTT Patient Temperature ABG pH ABG pH (Temp Correct) ABG pCO2 ABG pCO2 (Temp Corrct ABG pO2 ABG pO2 (Temp Correct ABG HCO3 ABG O2 Saturation ABG Base Excess Respiration Rate O2 Delivery Device Ventilator Type Vent Mode FiO2 Inspiratory Time PEEP Pressure Support Pressure Control EPAP IPAP BiPAP Sodium 142 Potassium 3.6 Chloride 88 L Carbon Dioxide 48 H* Anion Gap Not Reportable BUN 20 Creatinine 0.39 L Est GFR ( Amer) 200.2 Est GFR (Non-Af Amer) 165.5 BUN/Creatinine Ratio 51.3 H Glucose 117 H POC Glucose (mg/dL) 144 H Hemoglobin A1c Lactic Acid Calcium 9.1 Magnesium 1.9 Total Bilirubin AST ALT Alkaline Phosphatase Ammonia Total Creatine Kinase 112 Troponin I C-Reactive Protein B-Natriuretic Peptide Total Protein Albumin Globulin Albumin/Globulin Ratio Urine Color Urine Appearance Urine pH Ur Specific [place] Urine Protein Urine Ketones Urine Blood Urine Nitrate Urine Bilirubin Urine Urobilinogen Ur Leukocyte Esterase Urine WBC (Auto) Urine RBC (Auto) Urine Bacteria Hyaline Casts Urine Glucose 06/10/19 06/10/19 06/10/19 06:35 06:35 08:25 WBC RBC Hgb Hct MCV MCH MCHC RDW Plt Count MPV Neut % (Auto) Lymph % (Auto) Henry % (Auto) Eos % (Auto) Baso % (Auto) Absolute Neuts (auto) Absolute Lymphs (auto) Absolute Monos (auto) Absolute Eos (auto) Absolute Basos (auto) Absolute Nucleated RBC Nucleated RBC % INR (Anticoag Therapy) 0.97 APTT Patient Temperature ABG pH 7.30 L ABG pH (Temp Correct) ABG pCO2 115 H* ABG pCO2 (Temp Corrct ABG pO2 134 H ABG pO2 (Temp Correct ABG HCO3 43.2 H* ABG O2 Saturation 99.1 H ABG Base Excess 23.5 H Respiration Rate O2 Delivery Device Ventilator Type Vent Mode FiO2 Inspiratory Time PEEP Pressure Support Pressure Control EPAP IPAP BiPAP Sodium Potassium Chloride Carbon Dioxide Anion Gap BUN Creatinine Est GFR ( Amer) Est GFR (Non-Af Amer) BUN/Creatinine Ratio Glucose POC Glucose (mg/dL) Hemoglobin A1c Lactic Acid Calcium Magnesium Total Bilirubin AST ALT Alkaline Phosphatase Ammonia 61 H Total Creatine Kinase Troponin I C-Reactive Protein B-Natriuretic Peptide Total Protein Albumin Globulin Albumin/Globulin Ratio Urine Color Urine Appearance Urine pH Ur Specific [place] Urine Protein Urine Ketones Urine Blood Urine Nitrate Urine Bilirubin Urine Urobilinogen Ur Leukocyte Esterase Urine WBC (Auto) Urine RBC (Auto) Urine Bacteria Hyaline Casts Urine Glucose 06/10/19 06/10/19 06/10/19 08:25 10:30 12:12 WBC RBC Hgb Hct MCV MCH MCHC RDW Plt Count MPV Neut % (Auto) Lymph % (Auto) Henry % (Auto) Eos % (Auto) Baso % (Auto) Absolute Neuts (auto) Absolute Lymphs (auto) Absolute Monos (auto) Absolute Eos (auto) Absolute Basos (auto) Absolute Nucleated RBC Nucleated RBC % INR (Anticoag Therapy) APTT Patient Temperature Not Reportable ABG pH 7.23 L ABG pH (Temp Correct) Not Reportable ABG pCO2 > 125 H* ABG pCO2 (Temp Corrct Not Reportable ABG pO2 119 H ABG pO2 (Temp Correct Not Reportable ABG HCO3 TNP ABG O2 Saturation 99.4 H ABG Base Excess TNP Respiration Rate Not Reportable O2 Delivery Device bipap Ventilator Type Not Reportable Vent Mode Not Reportable FiO2 40 Inspiratory Time Not Reportable PEEP Not Reportable Pressure Support Not Reportable Pressure Control Not Reportable EPAP 6 IPAP 14 BiPAP Not Reportable Sodium Potassium Chloride Carbon Dioxide Anion Gap BUN Creatinine Est GFR ( Amer) Est GFR (Non-Af Amer) BUN/Creatinine Ratio Glucose POC Glucose (mg/dL) Hemoglobin A1c Lactic Acid 0.4 L Calcium Magnesium Total Bilirubin AST ALT Alkaline Phosphatase Ammonia Total Creatine Kinase Troponin I C-Reactive Protein B-Natriuretic Peptide Total Protein Albumin Globulin Albumin/Globulin Ratio Urine Color Straw Urine Appearance Clear Urine pH 5.0 Ur Specific [place] 1.013 Urine Protein Negative Urine Ketones Negative Urine Blood 2+ A Urine Nitrate Negative Urine Bilirubin Negative Urine Urobilinogen Negative Ur Leukocyte Esterase Negative Urine WBC (Auto) Trace(0-5/hpf) Urine RBC (Auto) 2+(6-10/hpf) A Urine Bacteria Absent Hyaline Casts Present A Urine Glucose Negative Imaging: cxr 06/08 - mild left atelectasis+; minimal congestion if at all CT brain 06/08 - no acute findings CT brain 06/09 - no acute findings CTA brain 06/09 - no LVO ; no severe stenosis CXR 06/09 - left small effusion LE duplex 06/08 - neg dvt CTA chest 06/08 - no PE, no acute findings TTE 06/08 - lvef normal, some lvot turbulence, RV mild dilatation, elevated PASP 50s, no vavlular abn noted Assessment: 64y F w/pmhx of Muscular dystrophy, hypothyroidism; presents to ER for complaints of >1 month of increasing lower extremity swelling, recently started on low dose Lasix. She also had complaints, as per sister also, of more fatigue and increased sleeping, from mid-sentence to on the phone to driving since past 1-2 months. SOB intermittently. Incontinent baseline. Wheelchair bound baseline with history of recurrent falls while mobilizing. She had a sleep study at [place] at home in jan 2019 and had cpap but not the correct one , so was to see Dr Mckinney but appt was not at this time. Her sister states she snores at night, apneic episodes, with intermittent waking also. Patient states she wakes at night frequently, always tired. In ER she was hypoxic 84% on RA, placed on NC 2 L. Currently awake, alert, while I talk to her she becomes sleepy during conversation on and off. She is otherwise not complaining of distress now. Currently on NC 2 L. -acute on chronic hypercapnic respiratoyr failure -acute hypoxic resp failure -enceephalopathy, metabolic -suspected YEHUDA vs central apnea -Volume overload -Muscular dystrophy Plan: Neuro- -neuro FLAT LOCKER overnight; CT brain neg, CTA neg; no focla findings that are new appreciated -EEG was done 06/09 without focal epileptiform discharges noted -neuro consult appreciated, pplan for MRI brain w/o -still very sleepy; is this all from hypercapnea? is there a central sleep apnea component? r/o CVA workup as above -will trial provigil to help with sleepiness -ammonia 61; ?; check tomorrow -check b12 -h/o muscular dystrophy - baseline now in wheelchair, had more falls these days. anothe rpossible etiology would be progression of disease? -Delirium prec; avoid BDZ CVS- -BP stable, HR stable -noted LE edema+++; cont alsix 20mg IV daily -TTE 06/08 - some RV dil noted; other findings noted above -Maintain MAP>65 Resp- -acute on chr hypercapnea; unclear etiology; no PE, no wheeze, low susp for copd exacc; had prior PFTs at some point and no obstructive etiology noted on chart; is there a sleep apnea component? central? Obstructive? -on NIV now; noted last abg with resp acidosis -patient now more awake but still doesnt trigger breaths, seems like she is dependant on internal rate of NIV -trial of provigil to help with stimulation -noted CTA and LE duplex studies, negative -will have pulm eval when able; discussed case, also suspect some central apnea? -she was a possible intubation earlier, discussed with sister at bedside, will have close observation, still labile -She has symptoms consistent with YEHUDA, intermittent waking, apneic episodes, daytimes sleeping; keep NIV at night, wean daytime -Wean Fio2 to keep sat>92% -Bronchodilators PRN, Aspiration prec ID- afebrile. wbc normal. nontoxic appearing. -LE bilateral edema with erythema+ better GI- -cardiac diet if more awake; keep NPO for now -GI prophylaxis Renal- -Cr normal; making urine; K okay, no acidosis -silva+ -chronic metabolic alkalosis which is compensating for hypercapnea+/resp acidosis -cont lasix 20mg iv daily for LE edema -strict I/O, replete to keep K>4, Mg>2 -silva as indicated Heme- hg stable. no bleeding. Endo- Maintain BG<200, insulin protocol as needed. check hba1c. -cont synthroid; check tsh Musculsk- pressure ulcer prophylaxis. Bedrest. oob to chair as tolerated Wounds- LE blisters+, local wound care. keep elevated. -noted left arm and breast eccymosis from previous fall Nutrition- cardiac diet DVT prophylaxis: lovenox GI prophylaxis: not indicated Silva Cathetor: yes 06/08 Disposition: patient requires ICU for resp failure req NIV, ecnephalopathy Patient Clinical Status: guarded Code Status: full code Total critical care time 45min, not including procedures/teaching Romeo Mahoney MD [facility] (Electronically Signed)
[2019-06-10 15:57] LABS: TSH (Thyroid Stimulating Horm) 4.53 mcIU/mL (0.34-5.60)
[2019-06-10] MEDS ORDERED: NS 0.9% 1000 ML** 1,000 ML IV ONE (16:16)
[2019-06-10] MEDS: Modafinil TAB* 100 MG PO SCH ×2 (16:27→18:30)
--- NOTE | 2019-06-10 18:23 | CONS ---
CONSULTATION REPORT: DATE OF CONSULT: 06/10/19 PATIENT OF: Dr. Mahoney. 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 She is incontinent at baseline and is wheelchair bound at baseline. She has had a sleep study at [facility] and has had apparently sleep apnea, but is not on nasal CPAP. She wakes frequently at night and is always tired and was hypoxic in the ER to 84% on room air, and she was becoming in the ER sleepy during conversation and was admitted and had overnight an episode of worsening lethargy and possibly a left facial droop, although this was not entirely clear. PAST MEDICAL HISTORY: She also has a history of hypothyroidism. PAST SURGICAL HISTORY: She is status post tonsillectomy, Achilles heel tendon surgery. MEDICATIONS AT HOME: Include: 1. Aspirin 81 mg daily. 2. Calciferol 2000 units daily. 3. Levothyroxine 50 mcg daily. 4. Hydrochlorothiazide 12.5 daily. 5. Alpha-tocopherol 400 units daily. ALLERGIES: No known allergies. FAMILY HISTORY: There is heart disease and SVT in mother and sister. SOCIAL HISTORY: She drinks 1 glass of wine a day when able. She smoked mildly for 10 years and stopped in the . She does not use drugs and she had worked at [employer] in the past. She lives at home independently. PHYSICAL EXAM: Temperature 96.8; pulse 76; respirations, BiPAP with breathing for her at this point, takes infrequent breaths when the BiPAP is shut off; blood pressure 96/52. She was somnolent and could be woken by noxious stim and then she would wake up, say hi to her sister and then fall quickly back to sleep. She was moving all extremities and there was no clear facial asymmetry. It was hard to get direct strength testing, but she moved her arms against gravity and it was probably 4-/5, legs were at least 3+/5. Reflexes were trace to 1. Pupils were equal, round, and reactive to light. Chest is clear. Cardiovascular: Regular rate and rhythm. Abdomen is soft with positive bowel sounds. DIAGNOSTIC STUDIES/LAB DATA: As part of her stroke workup last night, she had a CT scan, a repeat CT scan that showed no acute findings and a CTA that is likewise negative for significant vascular lesions. She had a transthoracic echocardiogram which was significant for moderate to severely increased pulmonary artery pressures. No dilatation of the left atrium. Labs include white count of 4.7, hematocrit of 48, normal differential. Normal INR and PTT. Blood gas this morning had a pH of 7.3, pCO2 of 115, and a pO2 of 134 and her blood gas on 06/09/19 had a pCO2 of 86. Her chemistries were significant for a bicarb of 48, chloride of 88, glucose was 117. Most recently , hemoglobin A1c is 6.1. Ammonia was initially 39 and is now 61. BNP was 110. Urine pH is 5 and had casts in it, but no white cells. Her EEG showed diffuse slowing. IMPRESSION AND PLAN: I discussed with Dr. Mahoney and her sister that she has an encephalopathy and severe somnolence presumably from her respiratory failure with severe hypercarbia, most likely secondary to her neuromuscular disease. It is unclear if there is any other factor that is contributing to her recent decline or whether it is just a natural progression of her muscular dystrophy. There has been a question of stroke or transient ischemic attack raised and it would be reasonable to get an MRI scan. I do not think that I would change her care at this point, but if the MRI shows a subacute lesion, I would add Plavix to the aspirin. The sister notes that she would not want any heroic things such as thrombectomy or tPA if she will clearly develop a stroke in the future. We also recommended Dr. Mahoney to check thyroid function. Thank you for sharing her case. [id number]/[facility] #: [id number] NARCISO
[2019-06-10] MEDS: Enoxaparin(*) 40 MG/0.4 ML SYR SUBCUT SCH (21:53)
--- NOTE | 2019-06-11 04:33 | EEG ---
ELECTROENCEPHALOGRAPHY: DATE OF STUDY: 06/10/19 - ROOM #ICU-12 PATIENT OF: [place] NP CLINICAL PROBLEM: This is a 64-year-old woman being evaluated for delirium and change in mental status. Of note, she has muscular dystrophy and has hypercarbia. She had drooling and facial droop, was thought not to have a stroke. MEDICATIONS: 1. Synthroid. 2. Lasix. 3. Lovenox. REPORT: Background cerebral activity consist of diffuse irregular admixed delta and theta activity with moderate amplitude. Throughout the tracing, no epileptiform potentials, focal abnormalities, or major asymmetries of background was noted. CLINICAL IMPRESSION: This EEG is abnormal because of diffuse slowing consistent with moderate encephalopathy but nonspecific as to etiology, the respiratory insufficiency the patient is having may be contributing to this encephalopathy. [id number] #: [id number] MTDD
[2019-06-11 04:40] LABS: Hematocrit 44 % (35-47); Hemoglobin 14.1 g/dL (12.0-16.0); Mean Corpuscular HGB Conc 32 g/dL (31-36); Mean Corpuscular Hemoglobin 29 pg (27-31); Mean Corpuscular Volume 90 fL (80-97); Platelet Count 171 10^3/uL (150-450); Red Blood Count 4.84 10^6 /uL (3.70-4.87); Red Cell Distribution Width 16 % (10-15); White Blood Count 6.4 10^3/uL (3.5-10.8)
[2019-06-11 04:58] LABS: Anion Gap 12 mmol/L (2-11); Blood Urea Nitrogen 19 mg/dL (6-24); CO2 Carbon Dioxide 40 mmol/L (22-32); Calcium 9.3 mg/dL (8.6-10.3); Chloride 91 mmol/L (101-111); Glucose 80 mg/dL (70-100); Magnesium 1.6 mg/dL (1.9-2.7); Potassium 3.3 mmol/L (3.5-5.0); Sodium 143 mmol/L (135-145)
[2019-06-11] MEDS: Levothyroxine TAB* 50 MCG TAB PO SCH ×2 (06:29→07:35)
[2019-06-11] MEDS ORDERED: Potassium Chloride* LIQUID 20 MEQ/15 ML UDC PO ONE (06:45)
[2019-06-11] MEDS ORDERED: Lactulose* 15 ML UDC PO ONE (06:45)
[2019-06-11] MEDS ORDERED: Potassium Chlor TAB* 20 MEQ TAB.ER PO ONE (06:45)
[2019-06-11] MEDS ORDERED: Magnesium Oxide TAB* 400 MG PO ONE (08:00)
[2019-06-11] MEDS: Furosemide IV* 10 MG/ML 2 ML VIAL (20 MG) IV SCH (08:48)
[2019-06-11] MEDS ORDERED: Magnesium Sulfate 2 GM IV* 2 GM/50 ML BAG IVPB ONE (09:34)
[2019-06-11] MEDS: Modafinil TAB* 100 MG PO SCH (10:04)
--- NOTE | 2019-06-11 16:28 | PN ---
Progress Note - Progress Note Date of Service: 06/11/19 Note: Progress Note - Critical Care 24 hour events -afebrile overnight -this morning more awake, alert; taken off NIV, speaking clearly, not sleepy during conversation -sister at bedside -making urine; noted hypotension yesterday post diuiresis, given bolus; BP stable today; given lasix today -tolerating po intake -no other acute findings today; for MRI brain later -was given provigil yesterday and became very anxious/hyperactive -no further weakness or slurred speech noted since yesterday cone marker Tele: NSR Vitals: Vital Signs Temp 98.1 F 06/11/19 12:00 Pulse 90 06/11/19 12:00 Resp 28 06/11/19 12:00 BP 129/68 06/11/19 12:00 Pulse Ox 99 06/11/19 12:00 Intake & Output 06/10/19 06/11/19 06/11/19 18:59 06:59 18:59 Intake Total 1000 0 0 Output Total 1210 975 100 Balance -210 -975 -100 Weight 86.183 kg Intake: IV Fluids 1000 NS 1000 Oral 0 0 0 Output: NG Tube Drainage Amount 300 Silva 910 975 100 O2/Vent: NIV 18/6 40% as needed; NC 5 Liter now Infusions: heplock Current Medications: Enoxaparin Sodium (Lovenox(*)) 40 mg SUBCUT Q24H [facility] Last Admin: 06/10/19 21:53 Dose: 40 mg Furosemide (Lasix Tab*) 20 mg PO DAILY [facility] Levothyroxine Sodium (Synthroid Tab*) 50 mcg PO DAILY@0600 [facility] Last Admin: 06/11/19 07:35 Dose: Not Given Physical Exam: Constitutional: awake, not sleepy, alert, no distress, no diaphoresis Head: normocephalic, atraumatic Eyes: no pallor, no icterus ENT: moist mucous membranes Neck: soft, supple, no jvd, no stridor CVS: normal rate, regular, no murmur Chest/Resp: bilateral air entry, no rhales, no wheeze, no rhonchi, no acc muscle use Abdomen/GI: soft, nontender, nondistended, BS+ Ext/Msk: warm, pulses+, 3+ bilateral LE edema, less erythema in LE, stable blisters withotu oozing Skin: intact, warm; some small LE b/l blisters; left arm and breast eccymosis+ from fall Neuro: awake, alert, no facial droop, UE 5/5 b/l, LE 3/5, oriented x4 Psych: normal affect Labs: Laboratory Results - last 24 hr 06/11/19 06/11/19 06/11/19 04:22 04:22 04:22 WBC 6.4 RBC 4.84 Hgb 14.1 Hct 44 MCV 90 MCH 29 MCHC 32 RDW 16 H Plt Count 171 MPV 8.0 Sodium 143 Potassium 3.3 L Chloride 91 L Carbon Dioxide 40 H Anion Gap 12 H BUN 19 Creatinine < 0.30 L Est GFR ( Amer) 271.0 Est GFR (Non-Af Amer) 224.0 BUN/Creatinine Ratio 63.0 H Glucose 80 Calcium 9.3 Magnesium 1.6 L Ammonia 72 H Imaging: cxr 06/08 - mild left atelectasis+; minimal congestion if at all CT brain 06/08 - no acute findings CT brain 06/09 - no acute findings CTA brain 06/09 - no LVO ; no severe stenosis CXR 06/09 - left small effusion LE duplex 06/08 - neg dvt CTA chest 06/08 - no PE, no acute findings TTE 06/08 - lvef normal, some lvot turbulence, RV mild dilatation, elevated PASP 50s, no vavlular abn noted eeg 06/09 - diffuse slowing cxr 06/10 - no acute findings noted; reviewed offical report of small atelectasis Assessment: 64y F w/pmhx of Muscular dystrophy, hypothyroidism; presents to ER for complaints of >1 month of increasing lower extremity swelling, recently started on low dose Lasix. She also had complaints, as per sister also, of more fatigue and increased sleeping, from mid-sentence to on the phone to driving since past 1-2 months. SOB intermittently. Incontinent baseline. Wheelchair bound baseline with history of recurrent falls while mobilizing. She had a sleep study at [place] at home in jan 2019 and had cpap but not the correct one , so was to see Dr Mckinney but appt was not at this time. Her sister states she snores at night, apneic episodes, with intermittent waking also. Patient states she wakes at night frequently, always tired. In ER she was hypoxic 84% on RA, placed on NC 2 L. Currently awake, alert, while I talk to her she becomes sleepy during conversation on and off. She is otherwise not complaining of distress now. Currently on NC 2 L. -acute on chronic hypercapnic respiratoyr failure -acute hypoxic resp failure -enceephalopathy, metabolic; resolved -suspected YEHUDA vs central apnea -Volume overload -Muscular dystrophy Plan: Neuro- -mental status improved; suspect this was all due to hypercapnea/metabolic dysfxn -d/c provigil; made patient very hyper and restless -EEG was done 06/09 without focal epileptiform discharges noted; slowing+ -neuro consult appreciated, plan for MRI brain w/o today -suspect some YEHUDA component; needs NIV indef -ammonia 70s -MRI brain today to complete neuro workup for other etiology -h/o muscular dystrophy - baseline now in wheelchair, had more falls these days. anothe rpossible etiology would be progression of disease? -Delirium prec; avoid BDZ CVS- -BP stable, HR stable -noted LE edema+++; cont lasix 20mg po daily -TTE 06/08 - some RV dil noted; other findings noted above -Maintain MAP>65 Resp- -acute on chr hypercapnea; suspect from decomp YEHUDA -improved today; now on NC -cont NIV at night; PRN daytime; has been stable on NC all day so far -no wheezing; CXR 06/10 without acute findings -incentive spirometry -pulm consult to see patient -will need home bipap -did not tolerate provigil; discontinued -She has symptoms consistent with YEHUDA, intermittent waking, apneic episodes, daytimes sleeping; keep NIV at night, wean daytime -Wean Fio2 to keep sat>92% -Bronchodilators PRN, Aspiration prec ID- afebrile. wbc normal. nontoxic appearing. -LE bilateral edema with erythema+ better GI- -cardiac diet -GI prophylaxis Renal- -Cr normal; making urine; K okay, no acidosis -silva+ -chronic metabolic alkalosis which is compensating for hypercapnea+/resp acidosis -cont lasix 20mg po daily for LE edema -strict I/O, replete to keep K>4, Mg>2 -silva as indicated Heme- hg stable. no bleeding. Endo- Maintain BG<200, insulin protocol as needed. check hba1c. -cont synthroid; check tsh Musculsk- pressure ulcer prophylaxis. Bedrest. oob to chair as tolerated Wounds- LE blisters+, local wound care. keep elevated. -noted left arm and breast eccymosis from previous fall Nutrition- cardiac diet DVT prophylaxis: lovenox GI prophylaxis: not indicated Silva Cathetor: yes 06/08 Disposition: patient requires ICU for resp failure req NIV ; if stable later today can probably be downgraded to medical floor Patient Clinical Status: guarded Code Status: full code Total critical care time 30 min, not including procedures/teaching Romeo Mahoney MD Quality Eng (Electronically Signed)
[2019-06-11] MEDS: Enoxaparin(*) 40 MG/0.4 ML SYR SUBCUT SCH (20:55)
--- NOTE | 2019-06-11 21:01 | CONS ---
PULMONARY CONSULTATION REPORT: DATE OF CONSULT: 06/11/19 CONSULTATION REQUESTED BY: Dr. Romeo Mahoney. REASON FOR CONSULT: Evaluation of hypercapnic respiratory failure. HISTORY OF PRESENT ILLNESS: The patient is a 64-year-old female with history of muscular dystrophy, hypothyroidism. She presented to the emergency room for evaluation of worsening lower extremity swelling for greater than a month in spite of being started on low-dose Lasix recently. She also was found to be more fatigued and sleeping most of the day. She would fall asleep even during conversation as per the sister. It has been progressively getting worse over the past 1 to 2 months. The patient also has intermittent shortness of breath. The patient is wheelchair bound at baseline due to history of recurrent falls , possibly from underlying muscular dystrophy. She recently had home sleep study through [facility] in January 2019 and was diagnosed with severe obstructive sleep apnea. She was initiated on CPAP. The patient could not tolerate the CPAP. She did not feel comfortable with the settings that were given. She could not be compliant with it. The patient has history of snoring at night and witnessed apneas. She also has disruptive sleep. She is fatigued in the day and sleeps mostly during the day. In the ER, she was found to be hypoxemic with O2 sat of 84% on room air and was initiated on O2 supplementation at 2 L per minute. She was transferred to the ICU with concern for worsening altered mental status and acute on chronic hypercapnic respiratory failure. CT brain was negative. CTA was personally reviewed by me - no evidence of pulmonary embolism noted. Basal atelectasis mostly on the left side noted. Small right pleural effusion was seen. EEG did not reveal any epileptiform discharges. The patient still continued to have issues with hypercapnia and sleepiness yesterday. The patient had received Provigil which has significantly helped her alertness. She was continued on BiPAP with significant improvement and did not require any intubation. The patient seen and examined at bedside. The patient has been alert, sitting up in the chair. Denied any issues currently. The patient reports benefitting from the BiPAP usage. She is willing to continue to use it upon discharge. PAST MEDICAL HISTORY: 1. Muscular dystrophy. 2. Hypothyroidism. 3. Recent diagnosis of severe obstructive sleep apnea. PAST SURGICAL HISTORY: Tonsillectomy, Achilles heel tendon surgery. MEDICATIONS AT HOME: 1. Alpha-tocopherol. 2. Aspirin. 3. Cholecalciferol. 4. Levothyroxine. 5. Hydrochlorothiazide. ALLERGIES: No allergies. FAMILY HISTORY: History of heart disease and SVT in mother and sister. SOCIAL HISTORY: Former smoker, smoked for about 10 years few cigarettes and stopped in 90s. Occasional alcohol intake. Denies drug use. REVIEW OF SYSTEMS: All 12 systems reviewed and as per HPI. PHYSICAL EXAM: The patient in bed, in no apparent distress. Vital Signs: Temperature 98.1, pulse 90 beats per minute, respiratory rate 28 per minute, O2 sat 99% on room air, blood pressure 129/68. HEENT: Pupils equal, reactive to light. Mallampati class IV airway. Decreased thyromental distance, retracted lower jaw and micrognathia. Lungs: Good air entry bilaterally. No wheezes on auscultation. Slightly diminished at bases bilaterally. Cardiovascular: S1, S2 present. Regular. Abdomen: Soft, nontender, nondistended. Bowel sounds present. Extremities: Normal range of motion. Skin: No rashes or bruises. Neuro: Alert, awake, oriented x3. DIAGNOSTIC STUDIES/LAB DATA: WBC count 6.4, hemoglobin 14.1, hematocrit 44, platelet count 171. Blood gas analysis on 06/10/19 showed respiratory acidosis with pH of 7.23, pCO2 greater than 125, O2 of 119, O2 sat 99% on 40% FiO2 and on BiPAP. Sodium 143, potassium 3.3, chloride 91, bicarb 40, BUN [address], [address] as described above in HPI. IMPRESSION AND RECOMMENDATIONS: 64-year-old female with muscular dystrophy, recent diagnosis of severe obstructive sleep apnea, admitted with hypercapnic respiratory failure. The patient also had hypoxemic respiratory failure which could be from underlying hypercapnia. The patient has severe sleep apnea that is not being treated, resulting in hypercapnic respiratory failure. All her symptoms fit into the category of sleep apnea. Given underlying muscular dystrophy, these symptoms are more pronounced. The patient agreed to be compliant with CPAP. Pathophysiology of sleep apnea and importance of CPAP and BiPAP was discussed. BiPAP education provided. Will follow the patient closely. Thank you for allowing me to participate in the care of the patient. [id number]/[facility] #: [id number] NARCISO
[2019-06-12] MEDS: Levothyroxine TAB* 50 MCG TAB PO SCH (05:28)
[2019-06-12 05:49] LABS: Hematocrit 45 % (35-47); Hemoglobin 14.2 g/dL (12.0-16.0); Mean Corpuscular HGB Conc 32 g/dL (31-36); Mean Corpuscular Hemoglobin 29 pg (27-31); Mean Corpuscular Volume 93 fL (80-97); Mean Platelet Volume 8.2 fL (7.4-10.4); Platelet Count 160 10^3/uL (150-450); Red Blood Count 4.85 10^6 /uL (3.70-4.87); Red Cell Distribution Width 17 % (10-15); White Blood Count 6.2 10^3/uL (3.5-10.8)
[2019-06-12 06:08] LABS: Blood Urea Nitrogen 28 mg/dL (6-24); Chloride 93 mmol/L (101-111); Glucose 114 mg/dL (70-100); Magnesium 2.3 mg/dL (1.9-2.7); Potassium 3.6 mmol/L (3.5-5.0); Sodium 143 mmol/L (135-145)
[2019-06-12 06:27] LABS: CO2 Carbon Dioxide 46 mmol/L (22-32)
[2019-06-12] MEDS: Furosemide TAB* 20 MG PO SCH (09:25)
--- NOTE | 2019-06-12 10:17 | PN ---
Subjective Date of Service: 06/12/19 Interval History: Called by RN this morning as patient was lethargic. Professor Of Literacy to bedside and only response to painful stim at first, but slowly improved and responded to voice. ABG ordered. A few hours patient reassessed and awake and answering simple questions. Reports breathing has improved mildly. Denies pain. Discussed plan with sister. Objective Active Medications: Enoxaparin Sodium (Lovenox(*)) 40 mg SUBCUT Q24H [facility] Last Admin: 06/11/19 20:55 Dose: 40 mg Furosemide (Lasix Tab*) 20 mg PO DAILY [facility] Last Admin: 06/12/19 09:25 Dose: Not Given Levothyroxine Sodium (Synthroid Tab*) 50 mcg PO DAILY@0600 [facility] Last Admin: 06/12/19 05:28 Dose: 50 mcg Vital Signs - 8 hr 06/12/19 06/12/19 06/12/19 04:08 07:26 09:27 Temperature 97.5 F 97.1 F Pulse Rate 100 92 Respiratory 18 16 17 Rate Blood Pressure 121/76 127/60 (mmHg) O2 Sat by Pulse 99 100 Oximetry Oxygen Devices in Use Now: BiPAP Appearance: Lethargic initially but improved Eyes: No Scleral Icterus Ears/Nose/Mouth/Throat: Mucous Membranes Moist Neck: NL Appearance and Movements; NL JVP Respiratory: Symmetrical Chest Expansion and Respiratory Effort, - - Moderately diminished airflow Cardiovascular: NL Sounds; No Murmurs; No JVD, - - Bilateral mild LE/pedal edema. Abdominal: NL Sounds; No Tenderness; No Distention Result Diagrams: 06/12/19 05:09 06/12/19 05:09 Additional Lab and Data: Laboratory Results - last 24 hr 06/12/19 06/12/19 06/12/19 05:09 05:09 09:35 WBC 6.2 RBC 4.85 Hgb 14.2 Hct 45 MCV 93 MCH 29 MCHC 32 RDW 17 H Plt Count 160 MPV 8.2 Patient Temperature Not Reportable ABG pH 7.18 L* ABG pH (Temp Correct) Not Reportable ABG pCO2 Not Reportable ABG pCO2 (Temp Corrct 141 H* ABG pO2 215 H ABG pO2 (Temp Correct Not Reportable ABG HCO3 TNP ABG O2 Saturation 99.9 H ABG Base Excess TNP Respiration Rate Not Reportable Ventilator Type Not Reportable Vent Mode Not Reportable FiO2 60 Inspiratory Time Not Reportable PEEP Not Reportable Pressure Support Not Reportable Pressure Control Not Reportable EPAP 8 IPAP 25 BiPAP Not Reportable Sodium 143 Potassium 3.6 Chloride 93 L Carbon Dioxide 46 H* Anion Gap Not Reportable BUN 28 H Creatinine < 0.30 L Est GFR ( Amer) 271.0 Est GFR (Non-Af Amer) 224.0 BUN/Creatinine Ratio 93.0 H Glucose 114 H Calcium 9.0 Magnesium 2.3 Ammonia 06/12/19 17:06 WBC RBC Hgb Hct MCV MCH MCHC RDW Plt Count MPV Patient Temperature ABG pH ABG pH (Temp Correct) ABG pCO2 ABG pCO2 (Temp Corrct ABG pO2 ABG pO2 (Temp Correct ABG HCO3 ABG O2 Saturation ABG Base Excess Respiration Rate Ventilator Type Vent Mode FiO2 Inspiratory Time PEEP Pressure Support Pressure Control EPAP IPAP BiPAP Sodium Potassium Chloride Carbon Dioxide Anion Gap BUN Creatinine Est GFR ( Amer) Est GFR (Non-Af Amer) BUN/Creatinine Ratio Glucose Calcium Magnesium Ammonia TNP Microbiology and Other Data: Microbiology 06/10/19 10:51 Aerobic Blood Culture - Preliminary Blood Venous No Growth Day 2 Anaerobic Blood Culture - Preliminary No Growth Day 2 06/10/19 10:20 Aerobic Blood Culture - Preliminary Blood Venous No Growth Day 2 Anaerobic Blood Culture - Preliminary No Growth Day 2 06/10/19 10:30 Urine Culture - Final Urine No Growth (<1,000 CFU/mL) 06/10/19 18:21 Nasal Screen MRSA (PCR) - Final Nasal Mrsa Not Detected Assess/Plan/Problems-Billing Assessment: 64 yr old female with pmh of muscular dystrophy, hypothyroid who presented to ED with LE edema, shortness of breath, and lethargy - Patient Problems (1) Altered mental status Comment: - Secondary to hypoxia/hypercapnia - CVA ruled out - Also elevated ammonia. Lactolose ordered (2) Acute and chronic respiratory failure with hypercapnia Comment: - Cont Bipap. May take small break for dinner, but needs to be replaced chasity and kept on through evening - Severe YEHUDA - Non compliant with Bipap at home - Admitted with AMS due to hypercapnia (3) Hypoxia Comment: - Cont Bipap (4) Hypothyroidism Comment: - 4.53 - Cont home dose of synthroid (5) Leg edema Comment: - Mild to mod LE and pedal edema - Improved per sister - Cont PO Lasix - Daily Weights and I&Os (6) Muscular dystrophy Comment: - Wheelchair bound at baseline (7) YEHUDA (obstructive sleep apnea) Comment: - Cont Bipap through night and reassess tomorrow - Dr Mckinney consulting (8) DVT prophylaxis Comment: - Lovenox (9) DNR (do not resuscitate) Comment: - Palliative Consult - Now DNR/DNI Attending: Chasity Boyd
--- NOTE | 2019-06-12 14:05 | CONSULT ---
Palliative / Hospice Consult Ordering Provider: Larisa Zaman - PCP-Katia Referal Reason: Goals of care/no bowel meds/no narcotics - Subjective Code Status: DNR Advance Directives Location: No Advance Directives MOLST Part A Completed: Yes - updated on chart MOLST Part E Completed:: Yes - updated on chart - History or Present Illness History or Present Illness: 64yo female with muscular dystrophy presents to ER with increase lower leg swelling, fatigue and increased sleepiness. PMH is significant for muscular dystrophy and hypothyroidism. 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 Studies CXR-small pleural effusion, EKG-NSR, brain CT-neg, chest CTA-no PE, small effusion, mild atelectasis LLL, ECHO-65-70% , mild-mod tricuspid regurge, venous doppler neg, brain CT #2 neg, head CTA-no significant stenosis, CXR#2-sm L pleural effusion vs chronic pleural thickening , EEG-diffuse slowing consistent with moderate encephalopathy, brain MRI-neg and CXR #3 atelectasis, H/H 14.2/45, BUN/Cr 28/.3, egfr 224, NH4 72, alb 3.6, INR .97 and BC neg. Pt admitted to ICU with acute on chronic hypercapnic and hypoxic respiratory failure, encephalopathy and severe sleep apnea. All history from sister and medical record, pt is too tired to engage. Lab Values: Abnormal Lab Results 06/12/19 06/12/19 06/12/19 05:09 05:09 09:35 WBC 6.2 RBC 4.85 Hgb 14.2 Hct 45 MCV 93 MCH 29 MCHC 32 RDW 17 H Plt Count 160 MPV 8.2 Patient Temperature Not Reportable ABG pH 7.18 L* ABG pH (Temp Correct) Not Reportable ABG pCO2 Not Reportable ABG pCO2 (Temp Corrct 141 H* ABG pO2 215 H ABG pO2 (Temp Correct Not Reportable ABG HCO3 TNP ABG O2 Saturation 99.9 H ABG Base Excess TNP Respiration Rate Not Reportable Ventilator Type Not Reportable Vent Mode Not Reportable FiO2 60 Inspiratory Time Not Reportable PEEP Not Reportable Pressure Support Not Reportable Pressure Control Not Reportable EPAP 8 IPAP 25 BiPAP Not Reportable Sodium 143 Potassium 3.6 Chloride 93 L Carbon Dioxide 46 H* Anion Gap Not Reportable BUN 28 H Creatinine < 0.30 L Est GFR ( Amer) 271.0 Est GFR (Non-Af Amer) 224.0 BUN/Creatinine Ratio 93.0 H Glucose 114 H Calcium 9.0 Magnesium 2.3 Laboratory Last Values WBC 6.2 10^3/uL (3.5-10.8) 06/12/19 05:09 RBC 4.85 10^6 /uL (3.70-4.87) 06/12/19 05:09 Hgb 14.2 g/dL (12.0-16.0) 06/12/19 05:09 Hct 45 % (35-47) 06/12/19 05:09 MCV 93 fL (80-97) 06/12/19 05:09 MCH 29 pg (27-31) 06/12/19 05:09 MCHC 32 g/dL (31-36) 06/12/19 05:09 RDW 17 % (10-15) H 06/12/19 05:09 Plt Count 160 10^3/uL (150-450) 06/12/19 05:09 MPV 8.2 fL (7.4-10.4) 06/12/19 05:09 Neut % (Auto) 81.6 % 06/09/19 15:56 Lymph % (Auto) 8.5 % 06/09/19 15:56 [place] % (Auto) 8.7 % 06/09/19 15:56 Eos % (Auto) 0.7 % 06/09/19 15:56 Baso % (Auto) 0.5 % 06/09/19 15:56 Absolute Neuts (auto) 5.0 10^3/ul (1.5-7.7) 06/09/19 15:56 Absolute Lymphs (auto) 0.5 10^3/ul (1.0-4.8) L 06/09/19 15:56 Absolute Monos (auto) 0.5 10^3/ul (0-0.8) 06/09/19 15:56 Absolute Eos (auto) 0.0 10^3/ul (0-0.6) 06/09/19 15:56 Absolute Basos (auto) 0.0 10^3/ul (0-0.2) 06/09/19 15:56 Absolute Nucleated RBC 0.0 10^3/ul 06/09/19 15:56 Nucleated RBC % 0.0 06/09/19 15:56 INR (Anticoag Therapy) 0.97 (0.82-1.09) 06/10/19 08:25 APTT 36.4 seconds (26.0-38.0) 06/09/19 15:57 Patient Temperature Not Reportable 06/12/19 09:35 ABG pH 7.18 (7.35-7.45) L* 06/12/19 09:35 ABG pH (Temp Correct) Not Reportable 06/12/19 09:35 ABG pCO2 Not Reportable 06/12/19 09:35 ABG pCO2 (Temp Corrct 141 mmHg (35-45) H* 06/12/19 09:35 ABG pO2 215 mmHg (80-100) H 06/12/19 09:35 ABG pO2 (Temp Correct Not Reportable 06/12/19 09:35 ABG HCO3 TNP 06/12/19 09:35 ABG O2 Saturation 99.9 % (94.0-98.0) H 06/12/19 09:35 ABG Base Excess TNP 06/12/19 09:35 Respiration Rate Not Reportable 06/12/19 09:35 O2 Delivery Device bipap 06/10/19 12:12 Ventilator Type Not Reportable 06/12/19 09:35 Vent Mode Not Reportable 06/12/19 09:35 FiO2 60 06/12/19 09:35 Inspiratory Time Not Reportable 06/12/19 09:35 PEEP Not Reportable 06/12/19 09:35 Pressure Support Not Reportable 06/12/19 09:35 Pressure Control Not Reportable 06/12/19 09:35 EPAP 8 06/12/19 09:35 IPAP 25 06/12/19 09:35 BiPAP Not Reportable 06/12/19 09:35 Sodium 143 mmol/L (135-145) 06/12/19 05:09 Potassium 3.6 mmol/L (3.5-5.0) 06/12/19 05:09 Chloride 93 mmol/L (101-111) L 06/12/19 05:09 Carbon Dioxide 46 mmol/L (22-32) H* 06/12/19 05:09 Anion Gap Not Reportable 06/12/19 05:09 BUN 28 mg/dL (6-24) H 06/12/19 05:09 Creatinine < 0.30 mg/dL (0.51-0.95) L 06/12/19 05:09 Est GFR ( Amer) 271.0 (>60) 06/12/19 05:09 Est GFR (Non-Af Amer) 224.0 (>60) 06/12/19 05:09 BUN/Creatinine Ratio 93.0 (8-20) H 06/12/19 05:09 Glucose 114 mg/dL (70-100) H 06/12/19 05:09 POC Glucose (mg/dL) 144 mg/dL (70-100) H 06/10/19 05:16 Hemoglobin A1c 6.1 % (4.0-5.6) H 06/09/19 21:11 Lactic Acid 0.4 mmol/L (0.5-2.0) L 06/10/19 08:25 Calcium 9.0 mg/dL (8.6-10.3) 06/12/19 05:09 Magnesium 2.3 mg/dL (1.9-2.7) 06/12/19 05:09 Total Bilirubin 0.50 mg/dL (0.2-1.0) 06/09/19 15:57 AST 30 U/L (13-39) 06/09/19 15:57 ALT 33 U/L (7-52) 06/09/19 15:57 Alkaline Phosphatase 56 U/L (34-104) 06/09/19 15:57 Ammonia 72 mcmol/L (16-53) H 06/11/19 04:22 Total Creatine Kinase 112 U/L (10-223) 06/10/19 06:35 Troponin I 0.00 ng/mL (<0.03) 06/09/19 15:57 C-Reactive Protein 6.79 mg/L (<8.01) 06/09/19 15:57 B-Natriuretic Peptide 110 pg/mL (<=100) H 06/09/19 15:57 Total Protein 5.9 g/dL (6.4-8.9) L 06/09/19 15:57 Albumin 3.6 g/dL (3.2-5.2) 06/09/19 15:57 Globulin 2.3 g/dL (2-4) 06/09/19 15:57 Albumin/Globulin Ratio 1.6 (1-3) 06/09/19 15:57 Vitamin B12 923 pg/mL (180-914) H 06/10/19 15:05 TSH 4.53 mcIU/mL (0.34-5.60) 06/10/19 15:05 Urine Color Straw 06/10/19 10:30 Urine Appearance Clear 06/10/19 10:30 Urine pH 5.0 (5-9) 06/10/19 10:30 Ur Specific Mcnary 1.013 (1.010-1.030) 06/10/19 10:30 Urine Protein Negative (Negative) 06/10/19 10:30 Urine Ketones Negative (Negative) 06/10/19 10:30 Urine Blood 2+ (Negative) A 06/10/19 10:30 Urine Nitrate Negative (Negative) 06/10/19 10:30 Urine Bilirubin Negative (Negative) 06/10/19 10:30 Urine Urobilinogen Negative (Negative) 06/10/19 10:30 Ur Leukocyte Esterase Negative (Negative) 06/10/19 10:30 Urine WBC (Auto) Trace(0-5/hpf) (Absent) 06/10/19 10:30 Urine RBC (Auto) 2+(6-10/hpf) (Absent) A 06/10/19 10:30 Urine Bacteria Absent (Absent) 06/10/19 10:30 Hyaline Casts Present (Absent) A 06/10/19 10:30 Urine Glucose Negative (Negative) 06/10/19 10:30 - Objective Active Medications: Enoxaparin Sodium (Lovenox(*)) 40 mg SUBCUT Q24H [facility] Last Admin: 06/11/19 20:55 Dose: 40 mg Furosemide (Lasix Tab*) 20 mg PO DAILY [facility] Last Admin: 06/12/19 09:25 Dose: Not Given Levothyroxine Sodium (Synthroid Tab*) 50 mcg PO DAILY@0600 [facility] Last Admin: 06/12/19 05:28 Dose: 50 mcg Vital Signs: Vital Signs: Temp Pulse Resp BP Pulse Ox 97.1 F 92 17 127/60 100 03/12/20 07:26 06/12/19 07:26 06/12/19 09:27 06/12/19 07:26 06/12/19 07:26 Patient Weight: Weight 82.236 kg Intake and Output: Intake & Output 06/10/19 06/11/19 06/12/19 06/13/19 06:59 06:59 06:59 06:59 Intake Total 0 1000 600 Output Total 2450 3554 1145 Balance -4786 -1185 -545 Weight 78.471 kg 86.183 kg 82.236 kg Intake: IV Fluids 1000 NS 1000 Oral 0 0 600 Output: NG Tube Drainage Amount 300 Urine 420 Jamil 2450 4350 725 Other: Date of Last Bowel 0 Movement ADLs: Meal Record Start: 06/09/19 19: 57 Freq: DAILY@0900,1400,1800 Status: Inactive Protocol: Created 06/09/19 19:57 System (Rec: 06/09/19 19:57 System [facility]-M03) ADLs: Meal Record Start: 06/10/19 07: 58 Freq: 09,13,18 Status: Inactive Protocol: Created 06/10/19 07:58 [id number] (Rec: 06/10/19 07:58 [id number] ICU-C07) Document 06/10/19 09:00 [id number] (Rec: 06/10/19 09:58 [id number] ICU-C07) Document 06/10/19 13:00 [id number] (Rec: 06/10/19 13:16 [id number] ICU-C07) Document 06/10/19 17:30 [id number] (Rec: 06/10/19 17:30 [id number] ICU-C07) Document 06/11/19 09:00 [id number] (Rec: 06/11/19 09:37 [id number] ICU-C07) Document 06/11/19 13:00 [id number] (Rec: 06/11/19 18:21 [id number] ICU-C07) Intake and Output Start: 06/09/19 13: 44 Freq: Status: Active Protocol: Created 06/09/19 13:44 System (Rec: 06/09/19 13:44 System ED-C24) Document 06/09/19 20:14 [id number] (Rec: 06/09/19 20:14 [id number] EDRM-C03) Intake and Output Start: 06/09/19 19: 57 Freq: DAILY@0600,1400,2200 Status: Inactive Protocol: Created 06/09/19 19:57 System (Rec: 06/09/19 19:57 System TELE-M03) Document 06/09/19 22:00 [id number] (Rec: 06/09/19 22:54 [id number] TELE-C09) Intake and Output Start: 06/10/19 07: 58 Freq: Q1HR Status: Inactive Protocol: Created 06/10/19 07:58 [id number] (Rec: 06/10/19 07:58 [id number] ICU-C07) Document 06/10/19 08:00 RMD3262 (Rec: 06/10/19 08:29 [id number] ICU-C07) Document 06/10/19 09:00 [id number] (Rec: 06/10/19 09:31 [id number] ICU-C07) Document 06/10/19 10:00 TPQ2609 (Rec: 06/10/19 11:13 [id number] ICU-C07) Document 06/10/19 11:00 LWE2929 (Rec: 06/10/19 11:13 GQT3641 ICU-C07) Document 06/10/19 12:00 MQP8799 (Rec: 06/10/19 12:08 [id number] ICU-C07) Document 06/10/19 13:00 HGB0708 (Rec: 06/10/19 13:12 [id number] ICU-C07) Document 06/10/19 14:00 VWV3566 (Rec: 06/10/19 14:39 [id number] ICU-C07) Document 06/10/19 15:00 PMP4574 (Rec: 06/10/19 15:30 [id number] ICU-C07) Document 06/10/19 15:00 HRM3906 (Rec: 06/10/19 15:28 IIO5603 ICU-M30) Document 06/10/19 16:00 TQW9256 (Rec: 06/10/19 16:06 [id number] ICU-C07) Document 06/10/19 17:00 CAR2139 (Rec: 06/10/19 17:06 [id number] ICU-C07) Document 06/10/19 18:00 FUC2749 (Rec: 06/10/19 18:02 [id number] ICU-C07) Document 06/10/19 19:00 MUV0264 (Rec: 06/10/19 21:35 [id number] ICU-C07) Document 06/10/19 20:00 EYI5087 (Rec: 06/10/19 21:42 GCN5101 ICU-C07) Document 06/10/19 21:00 WZF3561 (Rec: 06/10/19 21:43 [id number] ICU-C07) Document 06/10/19 22:00 IPC1886 (Rec: 06/10/19 22:22 [id number] ICU-C07) Document 06/10/19 23:00 WHX3839 (Rec: 06/11/19 00:52 [id number] ICU-C07) Document 06/11/19 00:00 AMO7219 (Rec: 06/11/19 00:58 [id number] ICU-C07) Document 06/11/19 00:58 AEM9196 (Rec: 06/11/19 00:59 [id number] ICU-C07) Document 06/11/19 02:00 UQQ1685 (Rec: 06/11/19 03:49 [id number] ICU-C07) Document 06/11/19 03:00 QBI6103 (Rec: 06/11/19 03:49 [id number] ICU-C07) Document 06/11/19 04:00 TZJ2433 (Rec: 06/11/19 04:10 [id number] ICU-C07) Document 06/11/19 05:00 OUG0019 (Rec: 06/11/19 06:01 [id number] ICU-C07) Document 06/11/19 06:00 RMQ7537 (Rec: 06/11/19 06:04 [id number] ICU-C07) Document 06/11/19 07:00 MVU7460 (Rec: 06/11/19 09:34 [id number] ICU-C07) Document 06/11/19 08:00 SIM8819 (Rec: 06/11/19 09:34 [id number] ICU-C07) Document 06/11/19 09:00 VYH5953 (Rec: 06/11/19 16:29 [id number] ICU-C07) Document 06/11/19 10:00 NCS2003 (Rec: 06/11/19 16:29 NAZ5876 ICU-C07) Document 06/11/19 11:00 YVB2643 (Rec: 06/11/19 16:29 [id number] ICU-C07) Document 06/11/19 12:00 UZI5773 (Rec: 06/11/19 16:29 [id number] ICU-C07) Document 06/11/19 13:00 FQR0994 (Rec: 06/11/19 16:30 [id number] ICU-C07) Document 06/11/19 14:00 EMP9689 (Rec: 06/11/19 16:30 UMD0392 ICU-C07) Document 06/11/19 15:00 FIM9433 (Rec: 06/11/19 16:30 [id number] ICU-C07) Document 06/11/19 16:00 YWO8759 (Rec: 06/11/19 16:34 [id number] ICU-C07) Document 06/11/19 17:00 HVG3061 (Rec: 06/11/19 19:08 [id number] ICU-C07) Document 06/11/19 18:00 QAS1581 (Rec: 06/11/19 19:08 [id number] ICU-C07) Document 06/11/19 19:00 KJW8468 (Rec: 06/11/19 19:08 [id number] ICU-C07) Document 06/11/19 20:00 VGQ8041 (Rec: 06/11/19 20:44 [id number] ICU-C06) Document 06/11/19 21:00 JVG0811 (Rec: 06/11/19 21:43 [id number] ICU-C06) Document 06/12/19 06:00 [id number] (Rec: 06/12/19 06:47 [id number] TELE-C13) Head: Normal Eyes: No Scleral Icterus Ears/Nose/Mouth/Throat: NL Teeth, Lips, Gums Neck: NL Appearance and Movements; NL JVP Cardiovascular: NL Sounds; No Murmurs; No JVD Abdominal: No Hepatosplenomegaly Neurological: - - not alert - Assessment Assessment: 64yo female with muscular dystrophy admitted with acute on chronic hypoxic and hypercapnic respiratory failure, encephalopathy and severe sleep apnea - Plan Consult Plan (MU): Palliative Plan: Long discussion with pt's sister Kat who is alternate HCP about goals of care. Sister's main goal is to keep pt comfortable but is okay with trial of BiPAP and understands if no improvement will need to be terminally weaned and will . CHRISTIAN completed DNR/DNI no feeding tube, trial of noninvasive ventilation on chart. If pt improves they are interested in MADDY. After MADDY they are thinking pt may need placement in SN[facility] since that is where her mother resides and may consider hospice depending how she is doing. Pt was living independently but since the summer has had a noticeable decline and sister feels she may not be able to live on her own. If pt continues to decline she would be eligible for hospice with diagnosis of progressive muscular dystrophy causing acute on chronic hypoxic and hypercapnic respiratory failure. KPS 50%, PPS 50% - Time On Unit Date of Evaluation: 06/12/19 Hospice Consult Time in: 13:15 Hospice Consult Time Out: 14:15 Hospice Consult Time Total: 60 > 50% of Time Spend In Counseling or Coordinating Care: Yes
--- NOTE | 2019-06-12 18:01 | PN ---
Progress Note - Progress Note Date of Service: 06/12/19 - Pulm f/u note Note: Patient seen and examined at bedside. Overnight events noted. Patient was found to be lethargic, responsive to painful stimuli earlier today. Patient was subsequently placed on BiPAP with improvement in mental status. Patient currently on BiPAP. Patient responding to verbal stimuli. Patient was sent to the floor last night. She has been on BiPAP for a few hours, might have had mask displaced last night Active Medications Generic Name Dose Route Start Last Admin Trade Name Freawa PRN Reason Stop Dose Admin Enoxaparin Sodium 40 mg 06/09/19 20:30 06/11/19 20:55 Lovenox(*) SUBCUT 40 mg Q24H REGGIE Administration Furosemide 20 mg 06/12/19 09:00 06/12/19 09:25 Lasix Tab* PO Not Given DAILY REGGIE Lactulose 30 ml 06/12/19 17:00 06/12/19 16:56 Lactulose* PO 30 ml TID REGGIE Administration Levothyroxine Sodium 50 mcg 06/10/19 06:00 06/12/19 05:28 Synthroid Tab* PO 50 mcg DAILY@0600 REGGIE Administration Vital Signs Temp Pulse Resp BP Pulse Ox 97.1 F 92 17 127/60 100 06/12/19 07:26 06/12/19 07:26 06/12/19 09:27 06/12/19 07:26 06/12/19 07:26 O/E: Pt sleepy, responds to verbal stimulu HEENT: BiPAP mask+ Lungs: Good a/e b/l CVS: S1, S2+ Abd: Soft, BS+ Ext: NOrmal ROM Neuro: Sleepy, responds to verbal stimuli Laboratory Results - last 24 hr 06/12/19 06/12/19 06/12/19 05:09 05:09 09:35 WBC 6.2 RBC 4.85 Hgb 14.2 Hct 45 MCV 93 MCH 29 MCHC 32 RDW 17 H Plt Count 160 MPV 8.2 Patient Temperature Not Reportable ABG pH 7.18 L* ABG pH (Temp Correct) Not Reportable ABG pCO2 Not Reportable ABG pCO2 (Temp Corrct 141 H* ABG pO2 215 H ABG pO2 (Temp Correct Not Reportable ABG HCO3 TNP ABG O2 Saturation 99.9 H ABG Base Excess TNP Respiration Rate Not Reportable Ventilator Type Not Reportable Vent Mode Not Reportable FiO2 60 Inspiratory Time Not Reportable PEEP Not Reportable Pressure Support Not Reportable Pressure Control Not Reportable EPAP 8 IPAP 25 BiPAP Not Reportable Sodium 143 Potassium 3.6 Chloride 93 L Carbon Dioxide 46 H* Anion Gap Not Reportable BUN 28 H Creatinine < 0.30 L Est GFR ( Amer) 271.0 Est GFR (Non-Af Amer) 224.0 BUN/Creatinine Ratio 93.0 H Glucose 114 H Calcium 9.0 Magnesium 2.3 Ammonia 06/12/19 17:06 WBC RBC Hgb Hct MCV MCH MCHC RDW Plt Count MPV Patient Temperature ABG pH ABG pH (Temp Correct) ABG pCO2 ABG pCO2 (Temp Corrct ABG pO2 ABG pO2 (Temp Correct ABG HCO3 ABG O2 Saturation ABG Base Excess Respiration Rate Ventilator Type Vent Mode FiO2 Inspiratory Time PEEP Pressure Support Pressure Control EPAP IPAP BiPAP Sodium Potassium Chloride Carbon Dioxide Anion Gap BUN Creatinine Est GFR ( Amer) Est GFR (Non-Af Amer) BUN/Creatinine Ratio Glucose Calcium Magnesium Ammonia TNP I/R: 64-year-old female with history of muscular dystrophy, recently diagnosed with severe obstructive sleep apnea. Patient admitted with altered mental status found to be having acute hypercapnic respiratory failure. CVA was ruled out. Patient was doing well Yesterday. She might not have had BiPAP in place all through the night last night. She was found to be having altered mental status and lethargic this morning. Blood gas showed severely elevated CO2. Patient currently on BiPAP with improving mental status Patient was evaluated by palliative care Patient is sister his healthcare proxy Patient did not want any aggressive measures in the past If he seems like would be BiPAP dependent, patient's sister would like to keep her comfortable and withdraw care She will continue with BiPAP overnight and will assess response in the morning. If she is unable to tolerate having BiPAP off for at least few hours during the day, it might not be worthwhile continuing with BiPAP 24 x 7. Will reassess in the morning Had extensive discussion with sister at bedside
[2019-06-12] MEDS: Enoxaparin(*) 40 MG/0.4 ML SYR SUBCUT SCH (20:50)
--- NOTE | 2019-06-12 22:55 | PN ---
PROGRESS NOTE: DATE OF SERVICE: 06/12/19 PATIENT OF: Dr. Mahoney. HISTORY: This is a 64-year-old woman who I was asked to evaluate for possible stroke in the setting of severe respiratory failure and then she may have had focal neurological symptoms. She has been more awake with improved respiratory functioning. PHYSICAL EXAMINATION: She has been afebrile with stable pulse of 90, respirations 28, blood pressure 129/68. This evaluation was done on 06/11/19. She was alert and oriented with normal speech and comprehension. She is diffusely weak from her muscular dystrophy. Chest: Clear. Cardiovascular: Regular rate and rhythm. DIAGNOSTIC STUDIES/LAB DATA: Her MRI scan did not show any acute stroke and I discussed this with her. This was read as normal. ASSESSMENT AND PLAN: I think Damaris most likely has had respiratory failure the night that she presented with possible stroke. I think the main treatment should be treating her respiratory symptoms at this point. Thank you for sharing her case. [id number]/CPS #: [id number] MTDDeneen
[2019-06-13] MEDS: Levothyroxine TAB* 50 MCG TAB PO SCH (06:14)
[2019-06-13 06:42] LABS: ABS Lymphocytes 0.3 10^3/ul (1.0-4.8); ABS Monocytes 0.8 10^3/ul (0-0.8); ABS Neutrophils 7.8 10^3/ul (1.5-7.7); Eosinophil % 0.2 %; Hematocrit 43 % (35-47); Hemoglobin 13.4 g/dL (12.0-16.0); Mean Corpuscular HGB Conc 31 g/dL (31-36); Mean Corpuscular Hemoglobin 29 pg (27-31); Mean Corpuscular Volume 94 fL (80-97); Mean Platelet Volume 8.2 fL (7.4-10.4); Platelet Count 126 10^3/uL (150-450); Red Blood Count 4.56 10^6 /uL (3.70-4.87); Red Cell Distribution Width 16 % (10-15)
[2019-06-13 06:57] LABS: Blood Urea Nitrogen 30 mg/dL (6-24); Calcium 9.1 mg/dL (8.6-10.3); Chloride 95 mmol/L (101-111); Glucose 108 mg/dL (70-100); Potassium 3.7 mmol/L (3.5-5.0); Sodium 144 mmol/L (135-145)
[2019-06-13 07:15] LABS: CO2 Carbon Dioxide 48 mmol/L (22-32)
[2019-06-13] MEDS: Furosemide TAB* 20 MG PO SCH (08:23)
[2019-06-13] MEDS ORDERED: Furosemide IV* 10 MG/ML VIAL (40 MG) IV SLOW PU ONE (09:54)
[2019-06-13] MEDS ORDERED: Morphine ORAL CONCENTRATE* 5 MG/0.25 ML ORAL.SYRIN SL PRN (17:55)
[2019-06-13] MEDS ORDERED: LORazepam TAB(*) 1 MG PO PRN (17:56)
--- NOTE | 2019-06-13 18:06 | PN ---
Subjective Date of Service: 06/13/19 Interval History: Today on assessment this morning patient was on bipap and occasionally responsive to voice. Sisters at bedside. Discussed plan of obtaining ABG and reassessing. ABG obtained and improved since yesterday evening. Discussed results with patient and sisters. Dr Uribe and nurse also at bedside. Plan made for patient to be off of bipap for 2 hr and then obtained abg. If patient declines before 2 hr mamadou she will be made comfort care. If patient does well we will obtain 2 hr ABG and review results. If results same as most recent she will be placed on bipap at night and off/prn during day. If worsening abg family and patient would like comfort care. Patient assessed 1 hr after bipap removed and she is awake, alert, eating and conversing. Objective Active Medications: Enoxaparin Sodium (Lovenox(*)) 40 mg SUBCUT Q24H [facility] Last Admin: 06/12/19 20:50 Dose: 40 mg Lactulose (Lactulose*) 30 ml PO TID [facility] Last Admin: 06/13/19 14:01 Dose: Not Given Levothyroxine Sodium (Synthroid Tab*) 50 mcg PO DAILY@0600 [facility] Last Admin: 06/13/19 06:14 Dose: Not Given Lorazepam (Ativan Tab(*)) 1 mg PO Q4H PRN PRN Reason: ANXIETY Morphine Sulfate (Morphine Oral Concentrate*) 5 mg SL Q2H PRN PRN Reason: PAIN - MODERATE Oxygen Devices in Use Now: Nasal Cannula Appearance: Comfortable, NAD Eyes: No Scleral Icterus Ears/Nose/Mouth/Throat: Clear Oropharnyx, Mucous Membranes Moist Neck: NL Appearance and Movements; NL JVP Respiratory: Symmetrical Chest Expansion and Respiratory Effort, - - Diminished Cardiovascular: NL Sounds; No Murmurs; No JVD, - - Bilat mod le edema Abdominal: NL Sounds; No Tenderness; No Distention Skin: No Rash or Ulcers Neurological: Alert and Oriented x 3 Nutrition: Taking PO's Result Diagrams: 06/13/19 06:17 06/13/19 06:17 Additional Lab and Data: Laboratory Results - last 24 hr 06/12/19 06/12/19 06/13/19 18:51 21:55 06:17 WBC 9.0 RBC 4.56 Hgb 13.4 Hct 43 MCV 94 MCH 29 MCHC 31 RDW 16 H Plt Count 126 L MPV 8.2 Neut % (Auto) 87.5 Lymph % (Auto) 3.0 [place] % (Auto) 9.0 Eos % (Auto) 0.2 Baso % (Auto) 0.3 Absolute Neuts (auto) 7.8 H Absolute Lymphs (auto) 0.3 L Absolute Monos (auto) 0.8 Absolute Eos (auto) 0.0 Absolute Basos (auto) 0.0 Absolute Nucleated RBC 0.0 Nucleated RBC % 0.0 Patient Temperature Not Reportable ABG pH 7.17 L* ABG pH (Temp Correct) Not Reportable ABG pCO2 > 125 H* ABG pCO2 (Temp Corrct Not Reportable ABG pO2 169 H ABG pO2 (Temp Correct Not Reportable ABG HCO3 TNP ABG O2 Saturation 100.0 H ABG Base Excess TNP Respiration Rate Not Reportable O2 Delivery Device Bipap Ventilator Type Not Reportable Vent Mode Not Reportable FiO2 55 Inspiratory Time Not Reportable PEEP Not Reportable Pressure Support Not Reportable Pressure Control Not Reportable EPAP Not Reportable IPAP Not Reportable BiPAP Not Reportable Sodium Potassium Chloride Carbon Dioxide Anion Gap BUN Creatinine Est GFR ( Amer) Est GFR (Non-Af Amer) BUN/Creatinine Ratio Glucose Calcium Ammonia 115 H 06/13/19 06/13/19 06/13/19 06:17 06:17 11:55 WBC RBC Hgb Hct MCV MCH MCHC RDW Plt Count MPV Neut % (Auto) Lymph % (Auto) [place] % (Auto) Eos % (Auto) Baso % (Auto) Absolute Neuts (auto) Absolute Lymphs (auto) Absolute Monos (auto) Absolute Eos (auto) Absolute Basos (auto) Absolute Nucleated RBC Nucleated RBC % Patient Temperature Not Reportable ABG pH 7.54 H ABG pH (Temp Correct) Not Reportable ABG pCO2 56 H ABG pCO2 (Temp Corrct Not Reportable ABG pO2 198 H ABG pO2 (Temp Correct Not Reportable ABG HCO3 41.9 H* ABG O2 Saturation 99.4 H ABG Base Excess 21.8 H Respiration Rate 15 O2 Delivery Device bipap Ventilator Type Not Reportable Vent Mode s/t FiO2 55 Inspiratory Time 1.0 PEEP Not Reportable Pressure Support Not Reportable Pressure Control Not Reportable EPAP 8 IPAP 25 BiPAP Not Reportable Sodium 144 Potassium 3.7 Chloride 95 L Carbon Dioxide 48 H* Anion Gap Not Reportable BUN 30 H Creatinine < 0.30 L Est GFR ( Amer) 271.0 Est GFR (Non-Af Amer) 224.0 BUN/Creatinine Ratio 100.0 H Glucose 108 H Calcium 9.1 Ammonia 75 H Microbiology and Other Data: Microbiology 06/10/19 10:51 Aerobic Blood Culture - Preliminary Blood Venous No Growth Day 3 Anaerobic Blood Culture - Preliminary No Growth Day 3 06/10/19 10:20 Aerobic Blood Culture - Preliminary Blood Venous No Growth Day 3 Anaerobic Blood Culture - Preliminary No Growth Day 3 06/10/19 10:30 Urine Culture - Final Urine No Growth (<1,000 CFU/mL) 06/10/19 18:21 Nasal Screen MRSA (PCR) - Final Nasal Mrsa Not Detected Assess/Plan/Problems-Billing Assessment: 64 yr old female with pmh of muscular dystrophy, hypothyroid who presented to ED with LE edema, shortness of breath, and lethargy - Patient Problems (1) Acute and chronic respiratory failure with hypercapnia Comment: - ABG obtained and improved since yesterday evening. Discussed results with patient and sisters. Dr Uribe and nurse also at bedside. Plan made for patient to be off of bipap for 2 hr and then obtained abg. If patient declines before 2 hr mamadou she will be made comfort care. If patient does well we will obtain 2 hr ABG and review results. If results same as most recent she will be placed on bipap at night and off/prn during day. If worsening abg family and patient would like comfort care. - Severe YEHUDA - Non compliant with Bipap at home - Admitted with AMS due to hypercapnia (2) Altered mental status Comment: - Improved (ABG also improved) - Secondary to hypoxia/hypercapnia - CVA ruled out (3) Hypoxia Comment: - Cont Bipap (4) Hypothyroidism Comment: - 4.53 - Cont home dose of synthroid (5) Leg edema Comment: - Increased edema today compared to yesterday. - IV Lasix ordered - Daily Weights and I&Os (6) Muscular dystrophy Comment: - Wheelchair bound at baseline (7) YEHUDA (obstructive sleep apnea) Comment: - Bipap - Dr Mckinney consulting (8) DVT prophylaxis Comment: - Lovenox (9) DNR (do not resuscitate) Comment: - Palliative Consult - Now DNR/DNI Attending: Miguelito Mitchell
[2019-06-13] MEDS: Enoxaparin(*) 40 MG/0.4 ML SYR SUBCUT SCH (20:09)
[2019-06-14] MEDS: Levothyroxine TAB* 50 MCG TAB PO SCH (05:59)
[2019-06-14 06:15] LABS: ABS Eosinophils 0.1 10^3/ul (0-0.6); ABS Lymphocytes 0.5 10^3/ul (1.0-4.8); ABS Monocytes 0.7 10^3/ul (0-0.8); ABS Neutrophils 4.8 10^3/ul (1.5-7.7); Eosinophil % 1.2 %; Hematocrit 42 % (35-47); Lymphocyte % 7.6 %; Mean Corpuscular HGB Conc 31 g/dL (31-36); Mean Corpuscular Hemoglobin 29 pg (27-31); Mean Corpuscular Volume 93 fL (80-97); Mean Platelet Volume 7.7 fL (7.4-10.4); Platelet Count 109 10^3/uL (150-450); Red Blood Count 4.48 10^6 /uL (3.70-4.87); Red Cell Distribution Width 16 % (10-15); White Blood Count 6.1 10^3/uL (3.5-10.8)
[2019-06-14 06:32] LABS: Blood Urea Nitrogen 25 mg/dL (6-24); Calcium 9.1 mg/dL (8.6-10.3); Chloride 90 mmol/L (101-111); Glucose 103 mg/dL (70-100); Potassium 3.6 mmol/L (3.5-5.0); Sodium 141 mmol/L (135-145)
[2019-06-14 07:01] LABS: CO2 Carbon Dioxide 48 mmol/L (22-32)
--- NOTE | 2019-06-14 17:37 | PN ---
Subjective Date of Service: 06/14/19 Interval History: Patient assessed this morning in bed. Reports she is feeling well. Denies sob, cp, palpitations, fever, cough, abd pain. Objective Active Medications: Enoxaparin Sodium (Lovenox(*)) 40 mg SUBCUT Q24H [facility] Last Admin: 06/13/19 20:09 Dose: 40 mg Lactulose (Lactulose*) 30 ml PO TID [facility] Last Admin: 06/14/19 15:32 Dose: 30 ml Levothyroxine Sodium (Synthroid Tab*) 50 mcg PO DAILY@0600 [facility] Last Admin: 06/14/19 05:59 Dose: 50 mcg Lorazepam (Ativan Tab(*)) 1 mg PO Q4H PRN PRN Reason: ANXIETY Morphine Sulfate (Morphine Oral Concentrate*) 5 mg SL Q2H PRN PRN Reason: PAIN - MODERATE Vital Signs - 8 hr 06/14/19 06/14/19 12:30 16:17 Temperature 97.9 F 97.7 F Pulse Rate 86 87 Respiratory 20 20 Rate Blood Pressure 105/54 124/71 (mmHg) O2 Sat by Pulse 87 98 Oximetry Oxygen Devices in Use Now: None Appearance: Comfortable, NAD Eyes: No Scleral Icterus Ears/Nose/Mouth/Throat: Mucous Membranes Moist Neck: NL Appearance and Movements; NL JVP Respiratory: Symmetrical Chest Expansion and Respiratory Effort, - - Diminished Cardiovascular: NL Sounds; No Murmurs; No JVD, RRR, - - Mild bilat LE edema Abdominal: NL Sounds; No Tenderness; No Distention Extremities: No Clubbing, Cyanosis Skin: No Rash or Ulcers Neurological: Alert and Oriented x 3 Nutrition: Taking PO's Result Diagrams: 06/14/19 06:09 06/14/19 06:09 Additional Lab and Data: Laboratory Results - last 24 hr 06/13/19 06/14/19 06/14/19 19:23 06:09 06:09 WBC 6.1 RBC 4.48 Hgb 13.0 Hct 42 MCV 93 MCH 29 MCHC 31 RDW 16 H Plt Count 109 L MPV 7.7 Neut % (Auto) 78.2 Lymph % (Auto) 7.6 Blaine % (Auto) 12.3 Eos % (Auto) 1.2 Baso % (Auto) 0.7 Absolute Neuts (auto) 4.8 Absolute Lymphs (auto) 0.5 L Absolute Monos (auto) 0.7 Absolute Eos (auto) 0.1 Absolute Basos (auto) 0.0 Absolute Nucleated RBC 0.0 Nucleated RBC % 0.0 ABG pH 7.33 L ABG pCO2 103 H* ABG pO2 232 H ABG HCO3 42.3 H* ABG O2 Saturation 100.0 H ABG Base Excess 22.3 H Sodium 141 Potassium 3.6 Chloride 90 L Carbon Dioxide 48 H* Anion Gap Not Reportable BUN 25 H Creatinine < 0.30 L Est GFR ( Amer) 271.0 Est GFR (Non-Af Amer) 224.0 BUN/Creatinine Ratio 83.0 H Glucose 103 H Calcium 9.1 06/14/19 12:20 WBC RBC Hgb Hct MCV MCH MCHC RDW Plt Count MPV Neut % (Auto) Lymph % (Auto) Blaine % (Auto) Eos % (Auto) Baso % (Auto) Absolute Neuts (auto) Absolute Lymphs (auto) Absolute Monos (auto) Absolute Eos (auto) Absolute Basos (auto) Absolute Nucleated RBC Nucleated RBC % ABG pH 7.43 ABG pCO2 83 H* ABG pO2 46 L* ABG HCO3 44.3 H* ABG O2 Saturation 88.5 L ABG Base Excess 25.2 H Sodium Potassium Chloride Carbon Dioxide Anion Gap BUN Creatinine Est GFR ( Amer) Est GFR (Non-Af Amer) BUN/Creatinine Ratio Glucose Calcium Microbiology and Other Data: Microbiology 06/10/19 10:51 Aerobic Blood Culture - Preliminary Blood Venous No Growth Day 4 Anaerobic Blood Culture - Preliminary No Growth Day 4 06/10/19 10:20 Aerobic Blood Culture - Preliminary Blood Venous No Growth Day 4 Anaerobic Blood Culture - Preliminary No Growth Day 4 06/10/19 10:30 Urine Culture - Final Urine No Growth (<1,000 CFU/mL) 06/10/19 18:21 Nasal Screen MRSA (PCR) - Final Nasal Mrsa Not Detected Assess/Plan/Problems-Billing Assessment: 64 yr old female with pmh of muscular dystrophy, hypothyroid who presented to ED with LE edema, shortness of breath, and lethargy - Patient Problems (1) Acute and chronic respiratory failure with hypercapnia Comment: - On bipap overnight and did well. Bipap removed at 0830 and patient placed on room air and saturing well. Has been off bipap since 0830 with plans to obtain abg at 1800. Patient to be placed back on bipap tonight for sleep or before as needed. - Severe YEHUDA - Non compliant with Bipap at home - Admitted with AMS due to hypercapnia (2) Altered mental status Comment: - Improved (ABG also improved) - Secondary to hypoxia/hypercapnia - CVA ruled out (3) Hypoxia Comment: - Cont Bipap (4) Hypothyroidism Comment: - 4.53 - Cont home dose of synthroid (5) Leg edema Comment: - Improved edema compared to yesterday - IV Lasix ordered - Daily Weights and I&Os (6) Muscular dystrophy Comment: - Wheelchair bound at baseline (7) YEHUDA (obstructive sleep apnea) Comment: - Bipap - Dr Mckinney consulting (8) DVT prophylaxis Comment: - Lovenox (9) DNR (do not resuscitate) Comment: - Palliative Consult - Now DNR/DNI Attending: Miguelito Mitchell
[2019-06-14] MEDS: Enoxaparin(*) 40 MG/0.4 ML SYR SUBCUT SCH (20:43)
[2019-06-15] MEDS: Levothyroxine TAB* 50 MCG TAB PO SCH (05:37)
[2019-06-15 05:55] LABS: Blood Urea Nitrogen 22 mg/dL (6-24); Chloride 91 mmol/L (101-111); Glucose 97 mg/dL (70-100); Sodium 140 mmol/L (135-145)
[2019-06-15 06:31] LABS: CO2 Carbon Dioxide 47 mmol/L (22-32)
[2019-06-15] MEDS ORDERED: LORazepam TAB(*) 0.5 MG PO PRN (16:12)
--- NOTE | 2019-06-15 18:27 | PN ---
Subjective Date of Service: 06/15/19 Interval History: Patient resting in bed on assessment. Patient is falling asleep during conversation. Discussed plan of care with patient and sister with Dr Gauthier. Patient does not want to use Bipap. Explained what would happen if patient did not use bipap and patient stated understanding. Sister also states understanding. Discussed comfort care and patient made comfort care Objective Active Medications: Levothyroxine Sodium (Synthroid Tab*) 50 mcg PO DAILY@0600 [facility] Last Admin: 06/15/19 05:37 Dose: 50 mcg Lorazepam (Ativan Tab(*)) 0.5 mg PO Q4H PRN PRN Reason: ANXIETY Morphine Sulfate (Morphine Oral Concentrate*) 5 mg SL Q2H PRN PRN Reason: PAIN - SEVERE Vital Signs - 8 hr 06/15/19 11:55 Temperature 97.6 F Pulse Rate 86 Respiratory 22 Rate Blood Pressure 111/59 (mmHg) O2 Sat by Pulse 83 Oximetry Oxygen Devices in Use Now: Nasal Cannula Appearance: Comfortable, falling asleep during conversation Eyes: No Scleral Icterus Ears/Nose/Mouth/Throat: Clear Oropharnyx, Mucous Membranes Moist Neck: NL Appearance and Movements; NL JVP Respiratory: Symmetrical Chest Expansion and Respiratory Effort, Clear to Auscultation Cardiovascular: NL Sounds; No Murmurs; No JVD, RRR, - - Bilateral LE edema Abdominal: NL Sounds; No Tenderness; No Distention Extremities: No Clubbing, Cyanosis Skin: No Rash or Ulcers Neurological: Alert and Oriented x 3, - - Lethargic occasionally Nutrition: Taking PO's Result Diagrams: 06/14/19 06:09 06/15/19 05:28 Additional Lab and Data: Laboratory Results - last 24 hr 06/14/19 06/15/19 19:41 05:28 Patient Temperature Not Reportable ABG pH 7.36 ABG pH (Temp Correct) Not Reportable ABG pCO2 98 H* ABG pCO2 (Temp Corrct Not Reportable ABG pO2 127 H ABG pO2 (Temp Correct Not Reportable ABG HCO3 43.5 H* ABG O2 Saturation 99.4 H ABG Base Excess 23.9 H Respiration Rate Not Reportable O2 Delivery Device 1lnc Ventilator Type Not Reportable Vent Mode Not Reportable FiO2 Not Reportable Inspiratory Time Not Reportable PEEP Not Reportable Pressure Support Not Reportable Pressure Control Not Reportable EPAP Not Reportable IPAP Not Reportable BiPAP Not Reportable Sodium 140 Potassium 4.0 Chloride 91 L Carbon Dioxide 47 H* Anion Gap Not Reportable BUN 22 Creatinine < 0.30 L Est GFR ( Amer) 271.0 Est GFR (Non-Af Amer) 224.0 BUN/Creatinine Ratio 73.0 H Glucose 97 Calcium 9.0 Magnesium 2.0 Microbiology and Other Data: Microbiology 06/10/19 10:51 Aerobic Blood Culture - Final Blood Venous No Growth Day 5 Anaerobic Blood Culture - Final No Growth Day 5 06/10/19 10:20 Aerobic Blood Culture - Final Blood Venous No Growth Day 5 Anaerobic Blood Culture - Final No Growth Day 5 06/10/19 10:30 Urine Culture - Final Urine No Growth (<1,000 CFU/mL) 06/10/19 18:21 Nasal Screen MRSA (PCR) - Final Nasal Mrsa Not Detected Assess/Plan/Problems-Billing Assessment: 64 yr old female with pmh of muscular dystrophy, hypothyroid who presented to ED with LE edema, shortness of breath, and lethargy - Patient Problems (1) Comfort measures only status Comment: - Discussed with sister and patient with Dr Welch - DNR updated to reflect Comfort Care (2) Altered mental status Comment: - Secondary to hypoxia/hypercapnia - CVA ruled out (3) Hypothyroidism Comment: - 4.53 - Cont home dose of synthroid (4) Muscular dystrophy Comment: - Wheelchair bound at baseline (5) DVT prophylaxis Comment: - Lovenox (6) DNR (do not resuscitate) Comment: - Comfort Care - DNR/DNI Attending: Miguelito Mitchell
[2019-06-15 20:11] VITALS: BP 134/74
[2019-06-16] MEDS: Levothyroxine TAB* 50 MCG TAB PO SCH (05:36)
--- NOTE | 2019-06-16 17:10 | PN ---
Subjective Date of Service: 06/16/19 Interval History: Patient was lethargic, had difficulty keeping eyes open during exam though would arouse to voice only. Feels short of breath at rest. Denied feeling dizzy , lightheaded, chest pain, palpitations, abdominal pain, nausea, vomiting, issues moving bowel or bladder. Family History: Unchanged from Admission Social History: Unchanged from Admission Past Medical History: Unchanged from Admission Objective Active Medications: Levothyroxine Sodium (Synthroid Tab*) 50 mcg PO DAILY@0600 [facility] Last Admin: 06/16/19 05:36 Dose: 50 mcg Lorazepam (Ativan Tab(*)) 0.5 mg PO Q4H PRN PRN Reason: ANXIETY Morphine Sulfate (Morphine Oral Concentrate*) 5 mg SL Q2H PRN PRN Reason: PAIN - SEVERE Oxygen Devices in Use Now: Nasal Cannula Appearance: Lethargic, ill looking woman seen resting in bed. Eyes: No Scleral Icterus, PERRLA Ears/Nose/Mouth/Throat: NL Teeth, Lips, Gums, Clear Oropharnyx, Mucous Membranes Moist Neck: NL Appearance and Movements; NL JVP, Trachea Midline Respiratory: Symmetrical Chest Expansion and Respiratory Effort, Clear to Auscultation, - - Diminished throughout. Cardiovascular: NL Sounds; No Murmurs; No JVD, RRR, No Edema Abdominal: NL Sounds; No Tenderness; No Distention, - - Hypoactive +BSx4. Lymphatic: No Cervical Adenopathy Extremities: No Edema, No Clubbing, Cyanosis Skin: No Rash or Ulcers, No Nodules or Sclerosis Neurological: Alert and Oriented x 3 Lines/Tubes/Other Access: Clean, Dry and Intact Peripheral IV Result Diagrams: 06/14/19 06:09 06/15/19 05:28 Additional Lab and Data: Laboratory Results - last 24 hr 06/14/19 06/15/19 19:41 05:28 Patient Temperature Not Reportable ABG pH 7.36 ABG pH (Temp Correct) Not Reportable ABG pCO2 98 H* ABG pCO2 (Temp Corrct Not Reportable ABG pO2 127 H ABG pO2 (Temp Correct Not Reportable ABG HCO3 43.5 H* ABG O2 Saturation 99.4 H ABG Base Excess 23.9 H Respiration Rate Not Reportable O2 Delivery Device 1lnc Ventilator Type Not Reportable Vent Mode Not Reportable FiO2 Not Reportable Inspiratory Time Not Reportable PEEP Not Reportable Pressure Support Not Reportable Pressure Control Not Reportable EPAP Not Reportable IPAP Not Reportable BiPAP Not Reportable Sodium 140 Potassium 4.0 Chloride 91 L Carbon Dioxide 47 H* Anion Gap Not Reportable BUN 22 Creatinine < 0.30 L Est GFR ( Amer) 271.0 Est GFR (Non-Af Amer) 224.0 BUN/Creatinine Ratio 73.0 H Glucose 97 Calcium 9.0 Magnesium 2.0 Microbiology and Other Data: Microbiology 06/10/19 10:51 Aerobic Blood Culture - Final Blood Venous No Growth Day 5 Anaerobic Blood Culture - Final No Growth Day 5 06/10/19 10:20 Aerobic Blood Culture - Final Blood Venous No Growth Day 5 Anaerobic Blood Culture - Final No Growth Day 5 06/10/19 10:30 Urine Culture - Final Urine No Growth (<1,000 CFU/mL) 06/10/19 18:21 Nasal Screen MRSA (PCR) - Final Nasal Mrsa Not Detected Assess/Plan/Problems-Billing Assessment: 64 yr old female with pmh of muscular dystrophy, hypothyroid who presented to ED with LE edema, shortness of breath, and lethargy - Patient Problems (1) Acute and chronic respiratory failure with hypercapnia Current Visit: Yes Status: Acute Code(s): J96.22 - ACUTE AND CHRONIC RESPIRATORY FAILURE WITH HYPERCAPNIA SNOMED Code(s): 1400770704333 Comment: -No longer utilizing bipap has patient cannot tolerate it. Is on comfort measures. - Severe YHEUDA - Non compliant with Bipap at home - Admitted with AMS due to hypercapnia (2) Comfort measures only status Current Visit: Yes Status: Acute Code(s): Z51.5 - ENCOUNTER FOR PALLIATIVE CARE SNOMED Code(s): 99521508389578 Comment: - Discussed with both sisters. [facility]. - DNR updated to reflect Comfort Care (3) Hypothyroidism Current Visit: Yes Status: Acute Code(s): E03.9 - HYPOTHYROIDISM, UNSPECIFIED SNOMED Code(s): 24975515 Comment: - Treatment stopped. On comfort care. (4) Muscular dystrophy Current Visit: Yes Status: Acute Code(s): G71.00 - MUSCULAR DYSTROPHY, UNSPECIFIED SNOMED Code(s): 09645372 Comment: - Wheelchair bound at baseline (5) YEHUDA (obstructive sleep apnea) Current Visit: Yes Status: Acute Code(s): G47.33 - OBSTRUCTIVE SLEEP APNEA ( ADULT) (PEDIATRIC) SNOMED Code(s): 69267619 Comment: -On 2L oxygen via nasal cannula. Cannot tolerate the bipap. Is on comfort measures. (6) DNR (do not resuscitate) Current Visit: Yes Status: Acute Comment: - Comfort Care - DNR/DNI (7) DVT prophylaxis Current Visit: Yes Status: Acute Code(s): Z29.9 - ENCOUNTER FOR PROPHYLACTIC MEASURES, UNSPECIFIED SNOMED Code(s): 709200086 Comment: - Lovenox Status and Disposition: Dispo: Inpatient admit. Discharge with hospice to a SNF. Condition: Comfort measures only. Attending: Miguelito Mitchell
[2019-06-17] MEDS: Levothyroxine TAB* 50 MCG TAB PO SCH (05:05)
[2019-06-17] MEDS: Morphine ORAL CONCENTRATE* 5 MG/0.25 ML ORAL.SYRIN SL PRN ×2 (06:01→15:47)
[2019-06-17] MEDS ORDERED: Atropine 1% (ORAL/SL)* 15 ML BTL SL PRN (14:59)
[2019-06-18] MEDS: Morphine ORAL CONCENTRATE* 5 MG/0.25 ML ORAL.SYRIN SL PRN (05:05)
[2019-06-18] MEDS: Levothyroxine TAB* 50 MCG TAB PO SCH (05:05)
--- NOTE | 2019-06-18 16:34 | PN ---
Subjective Date of Service: 06/17/19 Interval History: Patient was more awake and engaged in conversation than yesterday. Stated she felt comfortable. Denied dizziness, lightheadedness, chest pain, palpitations, shortness of breath, abdominal pain, nausea, vomiting, issues moving bowel or bladder. Family History: Unchanged from Admission Social History: Unchanged from Admission Past Medical History: Unchanged from Admission Objective Active Medications: Atropine Sulfate (Atropine 1% (Oral/Sl)*) 2 drop SL Q2H PRN PRN Reason: CONGESTION/SECRETIONS Levothyroxine Sodium (Synthroid Tab*) 50 mcg PO DAILY@0600 [facility] Last Admin: 06/18/19 05:05 Dose: 50 mcg Lorazepam (Ativan Tab(*)) 0.5 mg PO Q4H PRN PRN Reason: ANXIETY Morphine Sulfate (Morphine Oral Concentrate*) 5 mg SL Q2H PRN PRN Reason: PAIN - SEVERE Last Admin: 06/18/19 05:05 Dose: 5 mg Oxygen Devices in Use Now: High Flow Nasal Cannula Appearance: Drowsy but awake and talking. Sitting up in bed, no acute distress noted. Eyes: No Scleral Icterus, PERRLA Ears/Nose/Mouth/Throat: NL Teeth, Lips, Gums, Clear Oropharnyx, Mucous Membranes Moist Neck: NL Appearance and Movements; NL JVP, Trachea Midline Respiratory: Symmetrical Chest Expansion and Respiratory Effort, Clear to Auscultation, - - Diminished throughout bilaterally. Cardiovascular: NL Sounds; No Murmurs; No JVD, - - +1 non-pitting generalized edema. Abdominal: NL Sounds; No Tenderness; No Distention, No Hepatosplenomegaly Lymphatic: No Cervical Adenopathy Extremities: No Clubbing, Cyanosis Skin: No Rash or Ulcers, No Nodules or Sclerosis Neurological: - - Alert and orientedx2. Lines/Tubes/Other Access: Clean, Dry and Intact Peripheral IV Result Diagrams: 06/14/19 06:09 06/15/19 05:28 Additional Lab and Data: Laboratory Results - last 24 hr 06/14/19 06/15/19 19:41 05:28 Patient Temperature Not Reportable ABG pH 7.36 ABG pH (Temp Correct) Not Reportable ABG pCO2 98 H* ABG pCO2 (Temp Corrct Not Reportable ABG pO2 127 H ABG pO2 (Temp Correct Not Reportable ABG HCO3 43.5 H* ABG O2 Saturation 99.4 H ABG Base Excess 23.9 H Respiration Rate Not Reportable O2 Delivery Device 1lnc Ventilator Type Not Reportable Vent Mode Not Reportable FiO2 Not Reportable Inspiratory Time Not Reportable PEEP Not Reportable Pressure Support Not Reportable Pressure Control Not Reportable EPAP Not Reportable IPAP Not Reportable BiPAP Not Reportable Sodium 140 Potassium 4.0 Chloride 91 L Carbon Dioxide 47 H* Anion Gap Not Reportable BUN 22 Creatinine < 0.30 L Est GFR ( Amer) 271.0 Est GFR (Non-Af Amer) 224.0 BUN/Creatinine Ratio 73.0 H Glucose 97 Calcium 9.0 Magnesium 2.0 Microbiology and Other Data: Microbiology 06/10/19 10:51 Aerobic Blood Culture - Final Blood Venous No Growth Day 5 Anaerobic Blood Culture - Final No Growth Day 5 06/10/19 10:20 Aerobic Blood Culture - Final Blood Venous No Growth Day 5 Anaerobic Blood Culture - Final No Growth Day 5 06/10/19 10:30 Urine Culture - Final Urine No Growth (<1,000 CFU/mL) 06/10/19 18:21 Nasal Screen MRSA (PCR) - Final Nasal Mrsa Not Detected Assess/Plan/Problems-Billing Assessment: 64 yr old female with pmh of muscular dystrophy, hypothyroid who presented to ED with LE edema, shortness of breath, and lethargy - Patient Problems (1) Acute and chronic respiratory failure with hypercapnia Current Visit: Yes Status: Acute Code(s): J96.22 - ACUTE AND CHRONIC RESPIRATORY FAILURE WITH HYPERCAPNIA SNOMED Code(s): 5686026407329 Comment: -No longer utilizing bipap has patient cannot tolerate it. Is on comfort measures. - Severe YEHUDA - Non compliant with Bipap at home - Admitted with AMS due to hypercapnia (2) Comfort measures only status Current Visit: Yes Status: Acute Code(s): Z51.5 - ENCOUNTER FOR PALLIATIVE CARE SNOMED Code(s): 75717162812859 Comment: - Discussed with both sisters. She is to be discharged to a senior living care facility with hospice. - DNR updated to reflect Comfort Care (3) Hypothyroidism Current Visit: Yes Status: Acute Code(s): E03.9 - HYPOTHYROIDISM, UNSPECIFIED SNOMED Code(s): 47236162 Comment: - Treatment stopped. On comfort care. (4) Muscular dystrophy Current Visit: Yes Status: Acute Code(s): G71.00 - MUSCULAR DYSTROPHY, UNSPECIFIED SNOMED Code(s): 45004158 Comment: - Wheelchair bound at baseline (5) YEHUDA (obstructive sleep apnea) Current Visit: Yes Status: Acute Code(s): G47.33 - OBSTRUCTIVE SLEEP APNEA ( ADULT) (PEDIATRIC) SNOMED Code(s): 49795659 Comment: -On 2L oxygen via nasal cannula. Cannot tolerate the bipap. Is on comfort measures. (6) DNR (do not resuscitate) Current Visit: Yes Status: Acute Comment: - Comfort Care - DNR/DNI (7) DVT prophylaxis Current Visit: Yes Status: Acute Code(s): Z29.9 - ENCOUNTER FOR PROPHYLACTIC MEASURES, UNSPECIFIED SNOMED Code(s): 649115781 Comment: - None as she is comfort care. Status and Disposition: Dispo: Inpatient admit. Discharge with hospice to a SNF. Condition: Comfort measures only. Attending: Cristal Hicks
--- NOTE | 2019-06-18 16:39 | PN ---
Subjective Date of Service: 06/18/19 Interval History: Patient is slightly confused, somewhat drowsy but even more engaged than yesterday. Her sister questioned her progress, stating she seemed to be doing better than expected, which I agreed with. I spoke at length with both the sister and patient about hospice, YEHUDA, and her ability to change her mind about palliative care at anytime, though patient stated that she would prefer to stay on comfort care as she will never wear a bipap and does not want to live with the quality of life she currently has. Denied dizziness, lightheadedness, chest pain, palpitations, shortness of breath, abdominal pain, nausea, vomiting, issues moving bowel or bladder. Family History: Unchanged from Admission Social History: Unchanged from Admission Past Medical History: Unchanged from Admission Objective Active Medications: Atropine Sulfate (Atropine 1% (Oral/Sl)*) 2 drop SL Q2H PRN PRN Reason: CONGESTION/SECRETIONS Levothyroxine Sodium (Synthroid Tab*) 50 mcg PO DAILY@0600 [facility] Last Admin: 06/18/19 05:05 Dose: 50 mcg Lorazepam (Ativan Tab(*)) 0.5 mg PO Q4H PRN PRN Reason: ANXIETY Morphine Sulfate (Morphine Oral Concentrate*) 5 mg SL Q2H PRN PRN Reason: PAIN - SEVERE Last Admin: 06/18/19 05:05 Dose: 5 mg Oxygen Devices in Use Now: High Flow Nasal Cannula Appearance: This is a well developed woman who appears to be drowsy but in no acute distress. Eyes: No Scleral Icterus, PERRLA Ears/Nose/Mouth/Throat: NL Teeth, Lips, Gums, Clear Oropharnyx, Mucous Membranes Moist Neck: NL Appearance and Movements; NL JVP, Trachea Midline Respiratory: Symmetrical Chest Expansion and Respiratory Effort, Clear to Auscultation, - - Diminished throughout bilaterally. Cardiovascular: NL Sounds; No Murmurs; No JVD, - - +1 generalized non-pitting edema. Abdominal: NL Sounds; No Tenderness; No Distention Lymphatic: No Cervical Adenopathy Extremities: No Clubbing, Cyanosis Skin: No Rash or Ulcers, No Nodules or Sclerosis Neurological: - - Alert and orientedx2. Lines/Tubes/Other Access: Clean, Dry and Intact Peripheral IV Result Diagrams: 06/14/19 06:09 06/15/19 05:28 Additional Lab and Data: Laboratory Results - last 24 hr 06/14/19 06/15/19 19:41 05:28 Patient Temperature Not Reportable ABG pH 7.36 ABG pH (Temp Correct) Not Reportable ABG pCO2 98 H* ABG pCO2 (Temp Corrct Not Reportable ABG pO2 127 H ABG pO2 (Temp Correct Not Reportable ABG HCO3 43.5 H* ABG O2 Saturation 99.4 H ABG Base Excess 23.9 H Respiration Rate Not Reportable O2 Delivery Device 1lnc Ventilator Type Not Reportable Vent Mode Not Reportable FiO2 Not Reportable Inspiratory Time Not Reportable PEEP Not Reportable Pressure Support Not Reportable Pressure Control Not Reportable EPAP Not Reportable IPAP Not Reportable BiPAP Not Reportable Sodium 140 Potassium 4.0 Chloride 91 L Carbon Dioxide 47 H* Anion Gap Not Reportable BUN 22 Creatinine < 0.30 L Est GFR ( Amer) 271.0 Est GFR (Non-Af Amer) 224.0 BUN/Creatinine Ratio 73.0 H Glucose 97 Calcium 9.0 Magnesium 2.0 Microbiology and Other Data: Microbiology 06/10/19 10:51 Aerobic Blood Culture - Final Blood Venous No Growth Day 5 Anaerobic Blood Culture - Final No Growth Day 5 06/10/19 10:20 Aerobic Blood Culture - Final Blood Venous No Growth Day 5 Anaerobic Blood Culture - Final No Growth Day 5 06/10/19 10:30 Urine Culture - Final Urine No Growth (<1,000 CFU/mL) 06/10/19 18:21 Nasal Screen MRSA (PCR) - Final Nasal Mrsa Not Detected Assess/Plan/Problems-Billing Assessment: 64 yr old female with pmh of muscular dystrophy, hypothyroid who presented to ED with LE edema, shortness of breath, and lethargy - Patient Problems (1) Acute and chronic respiratory failure with hypercapnia Current Visit: Yes Status: Acute Code(s): J96.22 - ACUTE AND CHRONIC RESPIRATORY FAILURE WITH HYPERCAPNIA SNOMED Code(s): 3675875438978 Comment: -No longer utilizing bipap has patient cannot tolerate it. Is on comfort measures. - Severe YEHUDA - Non compliant with Bipap at home - Admitted with AMS due to hypercapnia (2) Comfort measures only status Current Visit: Yes Status: Acute Code(s): Z51.5 - ENCOUNTER FOR PALLIATIVE CARE SNOMED Code(s): 17775546078173 Comment: - Patient reaffirmed her desire to stay on comfort measures today. Will be discharged to a [facility] bed in a SNF as soon as one is available. - DNR updated to reflect Comfort Care (3) Hypothyroidism Current Visit: Yes Status: Acute Code(s): E03.9 - HYPOTHYROIDISM, UNSPECIFIED SNOMED Code(s): 34079559 Comment: - Treatment stopped. On comfort care. (4) Muscular dystrophy Current Visit: Yes Status: Acute Code(s): G71.00 - MUSCULAR DYSTROPHY, UNSPECIFIED SNOMED Code(s): 04185612 Comment: - Wheelchair bound at baseline (5) YEHUDA (obstructive sleep apnea) Current Visit: Yes Status: Acute Code(s): G47.33 - OBSTRUCTIVE SLEEP APNEA ( ADULT) (PEDIATRIC) SNOMED Code(s): 17796523 Comment: -On 2L oxygen via nasal cannula. Cannot tolerate the bipap. Is on comfort measures. (6) DNR (do not resuscitate) Current Visit: Yes Status: Acute Comment: - Comfort Care - DNR/DNI (7) DVT prophylaxis Current Visit: Yes Status: Acute Code(s): Z29.9 - ENCOUNTER FOR PROPHYLACTIC MEASURES, UNSPECIFIED SNOMED Code(s): 542951976 Comment: - None as she is comfort care. Status and Disposition: Dispo: Inpatient admit. Discharge with hospice to a SNF. Condition: Comfort measures only. Attending: Cristal Hicks
[2019-06-18] MEDS ORDERED: Acetaminophen TAB* 325 MG PO PRN (22:30)
[2019-06-19] MEDS: Levothyroxine TAB* 50 MCG TAB PO SCH (07:15)
--- NOTE | 2019-06-19 10:34 | DS ---
CC: Dr. Cristal Hicks; Dr. Crystal Montalvo* DATE OF ADMISSION: 06/09/2019. DATE OF DISCHARGE: 06/19/2019. MY ATTENDING PHYSICIAN WHILE IN THE HOSPITAL: Dr. Cristal Hicks* (dictated by ROSSY Robert). PRIMARY CARE PHYSICIAN: Dr. Crystal Montalvo. PRIMARY DISCHARGE DIAGNOSES: Acute hypercarbic respiratory failure likely due to obstructive sleep apnea; muscular dystrophy; altered mental status, improved ; comfort care measures; focal neurological deficits, unclear cause, likely related to hypercarbia. SECONDARY DISCHARGE DIAGNOSIS: Hypothyroidism. STUDIES DONE WHILE IN THE HOSPITAL: 1. Chest x-ray from 06/09/2019, reads as: Small pleural effusions, mild interstitial pulmonary edema suspected. 2. Brain CT from 06/09/2019, read as: No acute intracranial abnormality. 3. Chest/thorax CTA from 06/09/2019, read as: No pulmonary embolism, minimal atelectasis at the left lung base, small right pleural effusion. 4. Transthoracic echocardiogram shows moderate to severe pulmonary hypertension , EF 65 to 70 percent, wall motion normal, no wall motion abnormalities, trace mitral regurgitation, no evidence of aortic stenosis, mild to moderate tricuspid regurgitation, no pericardial effusion. 5. Brain CT from 06/10/2019, read as: No acute intracranial abnormality. 6. Venous Doppler study from 06/09/2019, read as: No DVT of the bilateral lower extremity. 7. Head CTA from 06/10/2019, read as: No acute findings. 8. EEG shows diffuse slowing consistent with encephalopathy. 9. Brain MRI shows no acute findings. 10. Chest x-ray from 06/11/2019, read as: Blunting of the left costophrenic angle on the left corresponding to atelectasis noted on the CT. CONSULTS WHILE AN INPATIENT: Dr. Mckinney of Pulmonology, Dr. Armand Ag of Neurology, Dr. Amy Uribe of Palliative Care. MEDICATIONS AT DISCHARGE: 1. Levothyroxine 50 mcg p.o. daily. 2. Tylenol 650 mg p.o. q.6 hours as needed. 3. Atropine two drops sublingual q.2 hours as needed. 4. Lorazepam 0.5 mg p.o. q.4 hours as needed. 5. Morphine Sulfate 5 mg sublingual q.2 hours as needed. New Medications at discharge: Tylenol, Atropine, Lorazepam, Morphine. Medications discontinued at discharge: Hydrochlorothiazide 12.5 mg p.o. daily, Alpha Tocopherol 400 mg p.o. daily, aspirin 81 mg p.o. daily, vitamin D 2,000 units p.o. daily. HOSPITAL COURSE: This is a brief summary of the patient's presentation. For more details, please see the history and physical from Dr. Romeo Mahoney on 12/2019. In brief, the patient is a 64-year-old female with the past medical history significant for above who presents to the emergency department for increased sleepiness and fatigue with worsening weakness and lower extremity swelling. The patient in the emergency department was found to be hypoxic which resolved with nasal cannula; however, the patient had a respiratory acidosis with compensating metabolic alkalosis. After addition of oxygen, the patient's PCO2 went from 80 to over 100, eventually going over 125. The patient was started on BiPAP. The patient had some focal neurological deficits with facial drooping and slurring of speech. The patient had the above imaging essentially ruling out CVA, making TIA much less likely. The patient had a consultation with Dr. Armand Ag who believed that this was related to respiratory issues. The patient then also had a consultation with Dr. Rebekah Mckinney who recommended BiPAP at least at night with possible BiPAP during the day if indicated. The patient had severe issues with daytime sleepiness and unresponsiveness with continued significant hypercapnia, even on BiPAP. The patient was undecided for a significant period of time as to whether or not she wanted to continue treatment or wanted to have comfort care as she did not feel her quality of life was very good. The patient had a consultation with Dr. Amy Uribe and the patient and her healthcare proxy decided that they did not want her to continue going on living like this and she no longer wanted any BiPAP therapy. This was discontinued and the patient's clinical status remained relatively stable without significant decompensation. The patient continued to be weak and intermittently confused. The patient had a bed offer from [facility] and the patient was stable and amenable for discharge to [facility] on 06/19/2019. PHYSICAL EXAMINATION ON THE DAY OF DISCHARGE: General: The patient is a 64- year- old female who appears stated age and is sitting comfortably in bed, in no acute distress. Vital Signs at the time of evaluation: Unavailable. HEENT: Head normocephalic, atraumatic. Sclerae anicteric. No conjunctival injection. Nasal mucosa moist. Oral mucosa moist. No pharyngeal erythema, discharge, or exudate. Significant overarching palate. Neck: Supple, nontender. No lymphadenopathy. No carotid bruits auscultated. No JVD. Cardiac: Regular rate and rhythm. No clicks, murmurs, gallops, or rubs. Pulses are 2+ in the bilateral dorsalis pedis, posterior tibialis, and radial areas. Respiratory: Clear to auscultation bilaterally. No wheezes, rales, or rhonchi. Good air exchange bilaterally. Abdomen: Soft, nontender, nondistended. Bowel sounds present. Normoactive in all four quadrants. No hepatosplenomegaly. No abdominal bruits auscultated. No hepatojugular reflux. Genitourinary: No suprapubic or CVA tenderness. Skin: Clean, dry, and intact. No rash. Neuro: Diffusely weak. Alert, oriented to self, time and place. Intermittently forgetful. Difficult to assess the patient's compression of medical diagnoses. Psychiatric: Very pleasant and cooperative. DISCHARGE PLAN BY PROBLEM: 1. 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 The patient is currently refusing the treatment for this which would be BiPAP at least at night and possibly during the day. The patient 's mental state is currently not significantly altered; however, this would likely get worse with time. The patient understands this and still would not like BiPAP therapy and would like comfort care only. The patient has had comfort care medications ordered as above and will go to [facility]. She is no longer able to take care of herself at home. 2. Muscular dystrophy: The patient has limb girdle muscular dystrophy which is very likely contributing to her current presentation. The patient will be on comfort care as above. 3. Hypothyroidism: Continue the patient's Synthroid for comfort. [facility]ITION[facility] CONDITION ON DISCHARGE: Stable. TIME SPENT: Approximately 35 minutes were spent on the discharge of this patient, 30 of which were spent [id number] with the patient obtaining history and physical and discussing treatment plan. ROSSY ROBERT [id number]/[facility] #: [id number] NARC[place]
== END 2019-06-19 11:15 | DRG 189 ==
LOC: ED 13:38 → MEDTELE 18:49 → ICU 06-10 06:20 → MEDTELE 06-11 23:52
PROVIDERS: ADMIT Internal Medicine; ATTEND Internal Medicine
PROC: 5A09357 Assistance with Respiratory Ventilation, Less than 24 Consecutive Hours, Continuous Positive Airway Pressure (ICD-10-PCS; principal; 2019-06-09)
PROC: 4A00X4Z Measurement of Central Nervous Electrical Activity, External Approach (ICD-10-PCS; 2019-06-10)
DX: J96.21 Acute and chronic respiratory failure with hypoxia (principal); G93.41 Metabolic encephalopathy; E87.2 Acidosis; Z66 Do not resuscitate; J96.22 Acute and chronic respiratory failure with hypercapnia; G71.00 Muscular dystrophy, unspecified; Z51.5 Encounter for palliative care; E03.9 Hypothyroidism, unspecified; G47.33 Obstructive sleep apnea (adult) (pediatric); Z79.899 Other long term (current) drug therapy; Z79.82 Long term (current) use of aspirin; Z79.890 Hormone replacement therapy; Z99.3 Dependence on wheelchair; Z87.891 Personal history of nicotine dependence; Z28.21 Immunization not carried out because of patient refusal
CPT/HCPCS: 36415; 36600; 70450; 70496; 70498; 70551; 71045; 71046; 71275; 80048; 80053; 81003; 81015; 82140; 82550; 82607; 82803; 83036; 83605; 83735; 83880; 84443; 84484; 85025; 85027; 85610; 85730; 86140; 87040; 87086; 87641; 93005; 93306; 93970; 94660; 95816; 96374; 99285; A9270-GY; J1650; J1940; J3475; Q9967